=== PATIENT | female | born 1990 | race Caucasian/White ===

== ENCOUNTER 2016-11-02 11:29 | Inpatient (IN) | payer BC, OTHER ==
[~2016-11-02] VITALS: Ht 177.8 cm; Wt 96.7 kg
[~2016-11-02 11:29] MED LIST: HYDR-2951 PO; LISI-360 PO; Z.0.BCPILL PO
[2016-11-02 11:31] VITALS: BP 145/90; PULSE 100; RESP 20; TEMP 98.5; O2SAT 98
[2016-11-02 12:05] VITALS: RESP 17; O2SAT 99
[2016-11-02] MEDS ORDERED: ONDANSETRON HCL 4 MG/2 ML VIAL IVP ONE (13:00)
[2016-11-02] MEDS ORDERED: PANTOPRAZOLE SODIUM 40 MG VIAL IVP ONE (13:00)
[2016-11-02] MEDS ORDERED: MORPHINE SULFATE 4 MG/ML INJ IV PUSH ONE (13:00)
--- NOTE | 2016-11-02 13:06 | PD ---
HPI Chief Complaint: Abdominal Pain Time Seen by Provider: 12:56 Travel History International Travel<30 days: No Contact w/Intl Traveler<30days: No Traveled to known affect area: No History of Present Illness HPI 25-year-old female complains of abdominal pain with nausea vomiting. Patient states the symptoms started 3 days ago. Patient states the pain is sharp stabbing pain localized epigastric and right upper quadrant of the abdomen. Patient states that the pain radiates to the right shoulder. Patient denies any fever chills. Patient states that she has intermittent nausea vomiting with the pain. Patient denies any headache. Patient denies any chest pain or shortness of breath. Patient denies any dysuria or frequency. Patient denies any vaginal discharge or bleeding. PFSH Past Medical History Asthma: Yes Cancer: No Cardiovascular Problems: Yes Genitourinary: No Hypertension: Yes Musculoskeletal: No Neurologic: No Psychiatric: No Reproductive: No ?: Not Past Surgical History Ear Surgery: Yes Oral Surgery: Yes (tonsoloctomy) Tonsillectomy: Yes Social History Alcohol Use: No Tobacco Use: No Substance Use: No Allergies-Medications (Allergen,Severity, Reaction): Coded Allergies: Codeine (Verified Allergy, Mild, 11/02/16) Penicillin (Verified Allergy, Mild, 11/02/16) Reported Meds & Prescriptions Reported Meds & Active Scripts Active Reported Loestrin Fe 1-20 Tablet (Norethindrone-E.estradiol-Iron) 1 Each Tablet 1 Tab PO HS Trazodone (Trazodone HCl) 50 Mg Tab 50 Mg PO HS Celexa (Citalopram Hydrobromide) 10 Mg Tab 10 Mg PO HS Review of Systems General / Constitutional: No: Fever Eyes: No: Visual changes HENT: No: Headaches Cardiovascular: No: Chest Pain or Discomfort Respiratory: No: Shortness of Breath Gastrointestinal: Positive: Nausea, Vomiting, Abdominal Pain Genitourinary: No: Dysuria Musculoskeletal: No: Pain Skin: No Rash Neurologic: No: Weakness Psychiatric: No: Depression Endocrine: No: Polydipsia Hematologic/Lymphatic: No: Easy Bruising Physical Exam Narrative GENERAL: Well-nourished, well-developed patient. SKIN: Focused skin assessment warm/dry. HEAD: Normocephalic. EYES: No scleral icterus. No injection or drainage. NECK: Supple, trachea midline. No JVD or lymphadenopathy. CARDIOVASCULAR: Regular rate and rhythm without murmurs, gallops, or rubs. RESPIRATORY: Breath sounds equal bilaterally. No accessory muscle use. GASTROINTESTINAL: Abdomen soft, nondistended. Patient has moderate tenderness on palpation right upper quadrant of the abdomen. No rebound tenderness. No mass. MUSCULOSKELETAL: No cyanosis, or edema. BACK: Nontender without obvious deformity. No CVA tenderness. Neurologic exam normal. Data Data Last Documented VS Vital Signs Date Time Temp Pulse Resp B/P Pulse Ox O2 Delivery O2 Flow Rate FiO2 11/02/16 12:05 17 99 Room Air 11/02/16 11:31 98.5 100 145/90 Orders Complete Blood Count With Diff (11/02/16 13:00) Comprehensive Metabolic Panel (11/02/16 13:00) Lipase (11/02/16 13:00) Prothrombin Time / Inr (Pt) (11/02/16 13:00) Act Partial Throm Time (Ptt) (11/02/16 13:00) Urinalysis - C+S If Indicated (11/02/16 13:00) Us Abdomen Gallbladder (11/02/16 ) Iv Access Insert/Monitor (11/02/16 13:00) Ecg Monitoring (11/02/16 13:00) Oximetry (11/02/16 13:00) Morphine Inj (Morphine Inj) (11/02/16 13:00) Ondansetron Inj (Zofran Inj) (11/02/16 13:00) Pantoprazole Inj (Protonix Inj) (11/02/16 13:00) Sodium Chlor 0.9% 1000 Ml Inj (Ns 1000 M (11/02/16 13:00) Ed Urine Pregnancytest Poc (11/02/16 13:00) Hydromorphone Pf Inj (Dilaudid Pf Inj) (11/02/16 13:15) Levofloxacin 750 Mg Premix Inj (Levaquin (11/02/16 17:00) Metronidazole 500 Mg Inj (Flagyl 500 Mg (11/02/16 17:00) Labs Laboratory Tests Test 11/02/16 11/02/16 13:05 14:10 White Blood Count 14.8 TH/MM3 Red Blood Count 4.75 MIL/MM3 Hemoglobin 14.1 GM/DL Hematocrit 41.2 % Mean Corpuscular Volume 86.7 FL Mean Corpuscular Hemoglobin 29.7 PG Mean Corpuscular Hemoglobin 34.3 % Concent Red Cell Distribution Width 12.7 % Platelet Count 297 TH/MM3 Mean Platelet Volume 7.6 FL Neutrophils (%) (Auto) 87.2 % Lymphocytes (%) (Auto) 9.1 % Monocytes (%) (Auto) 3.1 % Eosinophils (%) (Auto) 0.2 % Basophils (%) (Auto) 0.4 % Neutrophils # (Auto) 12.9 TH/MM3 Lymphocytes # (Auto) 1.3 TH/MM3 Monocytes # (Auto) 0.5 TH/MM3 Eosinophils # (Auto) 0.0 TH/MM3 Basophils # (Auto) 0.1 TH/MM3 CBC Comment DIFF FINAL Differential Comment Prothrombin Time 9.9 SEC Prothromb Time International 0.9 RATIO Ratio Activated Partial 26.9 SEC Thromboplast Time Sodium Level 135 MEQ/L Potassium Level 3.7 MEQ/L Chloride Level 103 MEQ/L Carbon Dioxide Level 25.6 MEQ/L Anion Gap 6 MEQ/L Blood Urea Nitrogen 7 MG/DL Creatinine 0.64 MG/DL Estimat Glomerular Filtration 114 ML/MIN Rate Random Glucose 100 MG/DL Calcium Level 9.1 MG/DL Total Bilirubin 0.5 MG/DL Aspartate Amino Transf 18 U/L (AST/SGOT) Alanine Aminotransferase 26 U/L (ALT/SGPT) Alkaline Phosphatase 57 U/L Total Protein 7.8 GM/DL Albumin 3.9 GM/DL Lipase 143 U/L Urine Color LIGHT-YELLOW Urine Turbidity CLEAR Urine pH 7.0 Urine Specific [place] 1.002 Urine Protein NEG mg/dL Urine Glucose (UA) NEG mg/dL Urine Ketones NEG mg/dL Urine Occult Blood NEG Urine Nitrite NEG Urine Bilirubin NEG Urine Urobilinogen LESS THAN 2.0 MG/DL Urine Leukocyte Esterase TRACE Urine RBC LESS THAN 1 /hpf Urine WBC 2 /hpf Urine Squamous Epithelial 2 /hpf Cells Urine Bacteria OCC /hpf Microscopic Urinalysis Comment CULT NOT INDICATED MDM Medical Decision Making Medical Screen Exam Complete: Yes Emergency Medical Condition: Yes Interpretation(s) Last Impressions Gall Bladder Ultrasound 11/02/16 0000 Signed Impressions: Service Date/Time: Wednesday, November 02, 2016 14:28 - CONCLUSION: Gallstones, gallbladder wall thickening and pericholecystic fluid suspicious for acute cholecystitis. Adjacent liver and right kidney is unremarkable. Nestor Beltrán MD 1646 PM. CBC WBC 14.8. 87 neutrophil. CMP within normal limit. UA is negative. Differential Diagnosis Differential diagnosis including gastritis, PUD, pancreatitis, cholecystitis, colitis, UTI, pyelonephritis, nephrolithiasis. Narrative Course 35-year-old female with epigastric and right upper quadrant abdominal pain. Normal saline solution 1 25 cc an hour. Dilaudid 0.5 mg IV. Zofran 4 mg IV. Protonix 40 mg IV. Levaquin 750 mg IV. Flagyl 500 mg IV. Diagnosis Primary Impression: Acute cholecystitis Admitting Information Admitting Physician Requests: Admit Brady Cook MD Nov 02, 2016 13:05
[2016-11-02] MEDS ORDERED: HYDROmorphone HCL PF 1 MG/ML VIAL IV PUSH ONE ×2 (13:15→17:15)
[2016-11-02 13:22] LABS: AUTOMATED NEUTROPHIL # 12.9 TH/MM3 (1.8-7.7); BASOPHIL # 0.1 TH/MM3 (0-0.2); BASOPHIL % 0.4 % (0.0-2.0); EOSINOPHIL % 0.2 % (0.0-4.0); HEMATOCRIT 41.2 % (35.0-46.0); HEMO FLAGS DIFF FINAL; LYMPH % 9.1 % (9.0-44.0); LYMPHOCYTE # 1.3 TH/MM3 (1.0-4.8); MEAN CELL VOLUME 86.7 FL (80.0-100.0); MEAN CORPUSCULAR HEMOGLOBIN 29.7 PG (27.0-34.0); MEAN CORPUSCULAR HGB CONC 34.3 % (32.0-36.0); MONO % 3.1 % (0.0-8.0); NEUT % 87.2 % (16.0-70.0); PLATELET COUNT 297 TH/MM3 (150-450); RED BLOOD COUNT 4.75 MIL/MM3 (4.00-5.30); RED CELL DISTRIBUTION WIDTH 12.7 % (11.6-17.2); WHITE BLOOD COUNT 14.8 TH/MM3 (4.0-11.0)
[2016-11-02] MEDS: SODIUM CHLOR 0.9% 1000 ML INJ 1,000 ML IV SCH ×3 (13:24→23:24)
[2016-11-02 13:36] LABS: APTT (PATIENT) 26.9 SEC (24.3-30.1); INTERNATIONAL NORMALIZED RATIO 0.9 RATIO; PROTHROMBIN TIME - PATIENT 9.9 SEC (9.8-11.6)
[2016-11-02 13:47] LABS: ANION GAP 6 MEQ/L (5-15); AST (GOT) 18 U/L (15-37); BICARBONATE 25.6 MEQ/L (21.0-32.0); BLOOD UREA NITROGEN 7 MG/DL (7-18); CHLORIDE 103 MEQ/L (98-107); GLOMERULAR FILTRATION RATE 114 ML/MIN (>89); POTASSIUM 3.7 MEQ/L (3.5-5.1); SODIUM (NA) 135 MEQ/L (136-145)
[2016-11-02 13:50] LABS: ALKALINE PHOSPHATASE 57 U/L (45-117); ALT (GPT) 26 U/L (10-53); TOTAL BILIRUBIN ADULT 0.5 MG/DL (0.2-1.0)
[2016-11-02 14:29] LABS: BACTERIA, URINE OCC /hpf; BLOOD, URINE NEG (NEG); COMMENT (UR) CULT NOT INDICATED; CULTURE IF INDICATED CULT NOT INDICATED; GLUCOSE,URINE NEG (NEG); KETONE, URINE NEG (NEG); NITRITE,URINE NEG (NEG); SQUAMOUS EPITHELIAL CELL URINE 2 /hpf (0-5); URINE COLOR LIGHT-YELLOW (YELLW/STRAW)
--- NOTE | 2016-11-02 15:34 | RADRPT ---
EXAM DATE/TIME: 11/02/2016 14:28 [facility] COMPARISON: No previous studies available for comparison. INDICATIONS : Abdominal pain, nausea and vomiting. MEDICAL HISTORY : Hypertension. SURGICAL HISTORY : Tonsillectomy. ENCOUNTER: Initial ACUITY: 3 days PAIN SCORE: 3/10 LOCATION: Right upper quadrant MEASUREMENTS: LIVER: 16.7 cm length COMMON DUCT: 7 mm RIGHT KIDNEY: 11.4 x 5.5 x 4.9 cm FINDINGS: Ultrasound examination of the right upper quadrant was performed. There are numerous gallstones in t he gallbladder. There is gallbladder wall thickening and some pericholecystic fluid. It is concerni ng for acute cholecystitis. There is no reported pain over the gallbladder. CONCLUSION: Gallstones, gallbladder wall thickening and pericholecystic fluid suspicious for acute cholecystitis. Adjacent liver and right kidney is unremarkable. Nestor Beltrán MD on November 02, 2016 at 15:30 Board Certified Radiologist. This report was verified electronically.
[2016-11-02] MEDS ORDERED: CELE10TA PO (15:49)
[2016-11-02] MEDS ORDERED: TRAZ50TA12 PO (15:49)
[2016-11-02] MEDS ORDERED: NORE1TAB55 PO (15:49)
[2016-11-02] MEDS ORDERED: LEVOFLOXACIN 750 MG PREMIX INJ 150 ML IV ONE (17:00)
[2016-11-02] MEDS ORDERED: metroNIDAZOLE 500 MG INJ 100 ML IV ONE (17:00)
[2016-11-02 17:42] VITALS: BP 130/80; PULSE 73; RESP 18; TEMP 98.9; O2SAT 99
[2016-11-02] MEDS ORDERED: MORPHINE SULFATE 4 MG/ML INJ IV PRN (18:30)
--- NOTE | 2016-11-02 18:45 | MH ---
cc: CARL LOTT M.D. DATE OF ADMISSION 11/02/2016 DATE OF 1990 HISTORY This is a 25-year-old female who presented to the emergency room with complaints of abdominal pain. The patient states the pain started four days prior to presentation. It was located in the epigastrium. She states it started following the meals consisting of taco and this persisted ever since. It goes to her right back and right shoulder. She has had nausea and vomiting associated with it. No change in bowel habits. She is unsure of fevers or chills or urinary symptoms. PAST MEDICAL HISTORY Significant for gastroesophageal reflux disease as well as asthma. PAST SURGICAL HISTORY Significant for appendectomy. ALLERGIES SHE HAS ALLERGIES TO PENICILLIN, CODEINE. MEDICATIONS She is on trazodone and Celexa at home as well as on control pills. SOCIAL HISTORY She does not smoke. FAMILY HISTORY Noncontributory. REVIEW OF SYSTEMS Review of systems significant for above. All other 10-point review negative. PHYSICAL EXAMINATION GENERAL: On exam she is laying in a stretcher in no acute distress. HEENT: Her pupils are equal and reactive. Her trachea is midline. LUNGS: Respirations clear. CARDIOVASCULAR: Regular. GASTROINTESTINAL: Soft, positive tenderness to the right upper quadrant. NEUROLOGICAL: Nonfocal. MUSCULOSKELETAL: No deformities. LABORATORY DATA The patient's white count is 15. Electrolytes within normal limits. IMAGING STUDIES Ultrasound revealed gallbladder with thickened wall with pericholecystic fluid as well as gallstones. ASSESSMENT This is a patient with cholecystitis, cholelithiasis. As symptoms have been present for approximately 4 days now it is felt that management with bowel rest, antibiotics. Will be monitored. Allow the patient's gallbladder to cool down and removed it in 6-8 weeks if she responds to this mode of therapy. If the patient does not respond to this mode of therapy will then proceed with laparoscopic cholecystectomy. This was explained to the patient. The risks and benefits explained, technical aspects explained. The patient verbalized understanding and is in agreement. MD LENORA Salazar/GUS /6:34 PM /6:40 PM
[2016-11-02 20:00] VITALS: BP 138/92; PULSE 81; RESP 16; TEMP 98.3; O2SAT 100
[2016-11-02 20:38] VITALS: PULSE 74
[2016-11-02] MEDS: SODIUM CHLORIDE 0.9% FLUSH 10 ML FLUSH IV FLUSH SCH (20:49)
[2016-11-02] MEDS ORDERED: traZODone HCL 50 MG TAB PO SCH (23:15)
[2016-11-02] MEDS ORDERED: CITALOPRAM HYDROBROMIDE 20 MG TAB PO SCH (23:15)
[2016-11-02] MEDS: MORPHINE SULFATE 4 MG/ML INJ IV PRN (23:21)
[2016-11-02] MEDS: SODIUM CHLORIDE 0.9% FLUSH 10 ML FLUSH IV FLUSH PRN (23:22)
[2016-11-02] MEDS: metroNIDAZOLE 500 MG INJ 100 ML IV SCH (23:23)
[2016-11-03] VITALS (8 sets, daily range): BP systolic 119–137; BP diastolic 67–77; PULSE 67–84; RESP 16–20; TEMP 97.9–98.8; O2SAT 97–100
[2016-11-03] MEDS: SODIUM CHLOR 0.9% 1000 ML INJ 1,000 ML IV SCH ×4 (02:22→21:35)
[2016-11-03] MEDS: MORPHINE SULFATE 4 MG/ML INJ IV PRN (06:27)
[2016-11-03] MEDS: SODIUM CHLORIDE 0.9% FLUSH 10 ML FLUSH IV FLUSH PRN (06:28)
[2016-11-03 06:46] LABS: AUTOMATED NEUTROPHIL # 4.8 TH/MM3 (1.8-7.7); BASOPHIL % 0.4 % (0.0-2.0); EOSINOPHIL # 0.1 TH/MM3 (0-0.4); EOSINOPHIL % 1.5 % (0.0-4.0); HEMATOCRIT 34.6 % (35.0-46.0); HEMO FLAGS DIFF FINAL; LYMPH % 28.1 % (9.0-44.0); LYMPHOCYTE # 2.1 TH/MM3 (1.0-4.8); MEAN CELL VOLUME 85.8 FL (80.0-100.0); MEAN CORPUSCULAR HEMOGLOBIN 30.5 PG (27.0-34.0); MEAN CORPUSCULAR HGB CONC 35.5 % (32.0-36.0); MONO % 7.1 % (0.0-8.0); NEUT % 62.9 % (16.0-70.0); PLATELET COUNT 232 TH/MM3 (150-450); RED BLOOD COUNT 4.03 MIL/MM3 (4.00-5.30); RED CELL DISTRIBUTION WIDTH 12.8 % (11.6-17.2); WHITE BLOOD COUNT 7.6 TH/MM3 (4.0-11.0)
[2016-11-03 07:24] LABS: BICARBONATE 23.1 MEQ/L (21.0-32.0); INDIRECT BILIRUBIN 0.5 MG/DL (0.0-0.8); POTASSIUM 3.3 MEQ/L (3.5-5.1); TOTAL BILIRUBIN ADULT 0.7 MG/DL (0.2-1.0)
[2016-11-03] MEDS: PANTOPRAZOLE SODIUM 40 MG VIAL IV SCH (09:08)
[2016-11-03] MEDS: SODIUM CHLORIDE 0.9% FLUSH 10 ML FLUSH IV FLUSH SCH ×2 (09:09→21:00)
[2016-11-03] MEDS: metroNIDAZOLE 500 MG INJ 100 ML IV SCH ×2 (09:09→16:42)
[2016-11-03] MEDS ORDERED: ACETAMINOPHEN 325 MG TAB PO PRN (12:00)
[2016-11-03] MEDS: POTASSIUM CHLOR 20 MEQ PREMIX 100 ML IV SCH ×2 (12:05→18:54)
--- NOTE | 2016-11-03 13:17 | HHI.PR ---
Subjective Subjective Notes 25yo female with 5 day history of cholecystitis being managed medically. Pt appears to be responding to antibotics and bowel rest. Laying in bed in no acute distress. Denies any nausea or vomiting, mild abdominal pain that is controlled with pain medication Objective Vitals/I&O Vital Signs Date Time Temp Pulse Resp B/P Pulse Ox O2 Delivery O2 Flow Rate FiO2 11/03/16 12:00 98.5 75 16 123/69 97 11/03/16 09:18 Room Air Labs Laboratory Tests Test 11/02/16 11/03/16 14:10 06:14 Urine Color LIGHT-YELLOW Urine Turbidity CLEAR Urine pH 7.0 Urine Specific [place] 1.002 Urine Protein NEG Urine Glucose (UA) NEG Urine Ketones NEG Urine Occult Blood NEG Urine Nitrite NEG Urine Bilirubin NEG Urine Urobilinogen LESS THAN 2.0 Urine Leukocyte Esterase TRACE Urine RBC LESS THAN 1 Urine WBC 2 Urine Squamous Epithelial 2 Cells Urine Bacteria OCC Microscopic Urinalysis Comment CULT NOT INDICATED White Blood Count 7.6 Red Blood Count 4.03 Hemoglobin 12.3 Hematocrit 34.6 Mean Corpuscular Volume 85.8 Mean Corpuscular Hemoglobin 30.5 Mean Corpuscular Hemoglobin 35.5 Concent Red Cell Distribution Width 12.8 Platelet Count 232 Mean Platelet Volume 7.7 Neutrophils (%) (Auto) 62.9 Lymphocytes (%) (Auto) 28.1 Monocytes (%) (Auto) 7.1 Eosinophils (%) (Auto) 1.5 Basophils (%) (Auto) 0.4 Neutrophils # (Auto) 4.8 Lymphocytes # (Auto) 2.1 Monocytes # (Auto) 0.5 Eosinophils # (Auto) 0.1 Basophils # (Auto) 0.0 CBC Comment DIFF FINAL Differential Comment Sodium Level 141 Potassium Level 3.3 Chloride Level 108 Carbon Dioxide Level 23.1 Anion Gap 10 Blood Urea Nitrogen 6 Creatinine 0.64 Estimat Glomerular Filtration 114 Rate Random Glucose 81 Calcium Level 8.1 Total Bilirubin 0.7 Direct Bilirubin 0.2 Indirect Bilirubin 0.5 Aspartate Amino Transf 9 (AST/SGOT) Alanine Aminotransferase 19 (ALT/SGPT) Alkaline Phosphatase 44 Total Protein 6.2 Albumin 2.8 Radiology Last Impressions Gall Bladder Ultrasound 11/02/16 0000 Signed Impressions: Service Date/Time: Wednesday, November 02, 2016 14:28 - CONCLUSION: Gallstones, gallbladder wall thickening and pericholecystic fluid suspicious for acute cholecystitis. Adjacent liver and right kidney is unremarkable. Nestor Beltrán MD Cardiovascular: Regular Lungs: Clear Abdomen: Non-tender Extremities: Perfused A/P Assessment and Plan D/C IV pain meds, control with oral Continue with ABX Start full liquid diet and advanced to soft, low-fat as tolerated Discharge Planning If she does well with PO intake can possibly go home tomorrow and follow up in the office in 10-14 days Vanessa Yeh [facility] Nov 03, 2016 13:17
--- NOTE | 2016-11-03 15:07 | EKG ---
Date Performed: 11/02/2016 Time Performed: 19:12:30 PTAGE: 25 years EKG: Sinus rhythm NONSPECIFIC T-WAVE ABNORMALITY BORDERLINE ECG NO PREVIOUS TRACING DOCTOR: Jaquelin Matson Interpretating Date/Time 11/03/2016 14:59:46
[2016-11-03] MEDS ORDERED: LEVOFLOXACIN 500 MG PREMIX INJ 100 ML IV SCH (17:00)
[2016-11-03] MEDS: HYDROmorphone HCL 2 MG TAB PO PRN (18:58)
[2016-11-03] MEDS ORDERED: CITALOPRAM HYDROBROMIDE 20 MG TAB PO SCH (21:00)
[2016-11-03] MEDS ORDERED: traZODone HCL 50 MG TAB PO SCH (21:00)
[2016-11-04] VITALS: BP 104/57; PULSE 61; RESP 18; TEMP 99; O2SAT 99
[2016-11-04] MEDS: HYDROmorphone HCL 2 MG TAB PO PRN ×4 (00:53→16:56)
[2016-11-04] MEDS: metroNIDAZOLE 500 MG INJ 100 ML IV SCH ×2 (00:54→09:39)
[2016-11-04 04:00] VITALS: BP 123/72; PULSE 64; RESP 20; TEMP 97.9; O2SAT 100
[2016-11-04 07:55] VITALS: PULSE 57
[2016-11-04 08:03] VITALS: BP 143/85; PULSE 67; RESP 18; TEMP 98.1; O2SAT 98
[2016-11-04] MEDS: SODIUM CHLORIDE 0.9% FLUSH 10 ML FLUSH IV FLUSH SCH (09:00)
[2016-11-04] MEDS: PANTOPRAZOLE SODIUM 40 MG VIAL IV SCH (09:40)
[2016-11-04] MEDS: SODIUM CHLOR 0.9% 1000 ML INJ 1,000 ML IV SCH (10:22)
[2016-11-04 12:00] VITALS: BP 120/67; PULSE 60; RESP 17; TEMP 98; O2SAT 97
--- NOTE | 2016-11-04 13:01 | HHI.PR ---
Subjective Subjective Notes 25yo female with 5 day history of cholecystitis being managed medically. Sitting up in bed, in no acute distress. Abdominal pain much improved, no nausea or vomiting. Tolerating soft diet Objective Vitals/I&O Vital Signs Date Time Temp Pulse Resp B/P Pulse Ox O2 Delivery O2 Flow Rate FiO2 11/04/16 08:03 98.1 67 18 143/85 98 11/03/16 21:45 Room Air Radiology Last Impressions Gall Bladder Ultrasound 11/02/16 0000 Signed Impressions: Service Date/Time: Wednesday, November 02, 2016 14:28 - CONCLUSION: Gallstones, gallbladder wall thickening and pericholecystic fluid suspicious for acute cholecystitis. Adjacent liver and right kidney is unremarkable. Nestor Beltrán MD Cardiovascular: Regular Lungs: Clear Abdomen: Non-tender Extremities: Perfused A/P Assessment and Plan Continue with ABX at home Continue with low-fat as tolerated Discharge Planning Most likely D/C home later today Vanessa Yeh Nov 04, 2016 13:00
[2016-11-04] MEDS ORDERED: LEVO750T3 PO (15:35)
[2016-11-04] MEDS ORDERED: METR-1 PO (15:35)
[2016-11-04] MEDS ORDERED: OXYC1TAB63 PO (15:35)
[2016-11-04 16:00] VITALS: BP 123/64; PULSE 61; RESP 17; TEMP 97.9; O2SAT 100
== END 2016-11-04 17:28 | disposition home or self-care (01) | DRG 446 ==
LOC: NEPC 11:29 → NEDH 17:15 → N04A 20:02
PROVIDERS: ADMIT Surgery; ATTEND Surgery
DX: K80.10 Calculus of gallbladder with chronic cholecystitis without obstruction (principal); I10 Essential (primary) hypertension; J45.909 Unspecified asthma, uncomplicated; K21.9 Gastro-esophageal reflux disease without esophagitis
CPT/HCPCS: 76705; 80048; 80053; 80076; 81001; 83690; 84703; 85025; 85610; 85730; 93005; 96374; 96375; 96376; C9113; J1170; J1956; J2270; J2405; J3480; J7030

== ENCOUNTER 2016-11-07 00:40 | Inpatient (IN) | payer OTHER ==
[2016-11-07] VITALS (7 sets, daily range): BP systolic 115–127; BP diastolic 71–86; PULSE 65–91; RESP 14–20; TEMP 97.1–98.8; O2SAT 96–99
[~2016-11-07] VITALS: Ht 170.2 cm; Wt 97.3 kg
[~2016-11-07 00:40] MED LIST changes: +CELE10TA PO; -HYDR-2951 PO; +LEVO750T3 PO; -LISI-360 PO; +METR-1 PO; +NORE1TAB55 PO; +OXYC1TAB63 PO; +TRAZ50TA12 PO; -Z.0.BCPILL PO
--- NOTE | 2016-11-07 01:44 | PD ---
HPI Chief Complaint: Abdominal Pain Time Seen by Provider: 01:24 Travel History International Travel<30 days: No Contact w/Intl Traveler<30days: No Traveled to known affect area: No History of Present Illness HPI 25yo F presents to the ED with c/o RUQ pain that started at 11pm today. Pain is sharp and radiates to right scapula and constant. Associated with nausea. Had some chills. Denies any chest pain, fever, sob, vomiting, dysuria, hematuria, focal weakness or numbness. Pt was just admitted 11/02/[address] was seen [address] Dr[address] Reina for acute cholecystitis. Plan at the time was to medically manage and take the gallbladder out later but if symptoms occur again , then plan was lap cholecystectomy. Pt is on her menstrual period. PFSH Past Medical History Asthma: Yes Anxiety: Yes Depression: Yes Cancer: No Cardiovascular Problems: Yes Endocrine: No Gastrointestinal Disorders: Yes (appendectomy (2012)) GERD: Yes Genitourinary: No Hypertension: Yes Immune Disorder: No Musculoskeletal: No Neurologic: No Psychiatric: Yes Reproductive: No Respiratory: Yes Tetanus Vaccination: > 5 Years ?: Not LMP: currently on it Past Surgical History Abdominal Surgery: Yes (appendectomy (2012)) Ear Surgery: Yes Oral Surgery: Yes (tonsoloctomy) Tonsillectomy: Yes Other Surgery: Yes Social History Alcohol Use: No Tobacco Use: No Substance Use: No Allergies-Medications (Allergen,Severity, Reaction): Coded Allergies: Codeine (Verified Allergy, Mild, 11/02/16) Penicillin (Verified Allergy, Mild, 11/02/16) Reported Meds & Prescriptions Reported Meds & Active Scripts Active Oxycodone-Acetaminophen 5-325 mg Tab 1-2 Tab PO Q4H PRN Reported Loestrin Fe 1-20 Tablet (Norethindrone-E.estradiol-Iron) 1 Each Tablet 1 Tab PO HS Trazodone (Trazodone HCl) 50 Mg Tab 50 Mg PO HS Celexa (Citalopram Hydrobromide) 10 Mg Tab 10 Mg PO HS Review of Systems Except as stated in HPI: all other systems reviewed are Neg Physical Exam Narrative GENERAL: 25yo F in mild distress. SKIN: Focused skin assessment warm/dry. HEAD: Atraumatic. Normocephalic. EYES: Pupils equal and round. No scleral icterus. No injection or drainage. ENT: No nasal bleeding or discharge. Mucous membranes pink and moist. NECK: Trachea midline. No JVD. CARDIOVASCULAR: Regular rate and rhythm. No murmur appreciated. RESPIRATORY: No accessory muscle use. Clear to auscultation. Breath sounds equal bilaterally. GASTROINTESTINAL: Abdomen soft, +RUQ. No rebound tenderness or guarding. BACK: +TTP right scapula. MUSCULOSKELETAL: No obvious deformities. No clubbing. No cyanosis. No edema. NEUROLOGICAL: Awake and alert. No obvious cranial nerve deficits. Motor grossly within normal limits. Normal speech. PSYCHIATRIC: Appropriate mood and affect; insight and judgment normal. Data Data Last Documented VS Vital Signs Date Time Temp Pulse Resp B/P Pulse Ox O2 Delivery O2 Flow Rate FiO2 11/07/16 10:23 88 16 122/78 99 Room Air 11/07/16 07:01 98.8 Orders Basic Metabolic Panel (Bmp) (11/07/16 01:37) Complete Blood Count With Diff (11/07/16 01:37) Lipase (11/07/16 01:37) Prothrombin Time / Inr (Pt) (11/07/16 01:37) Act Partial Throm Time (Ptt) (11/07/16 01:37) Urinalysis - C+S If Indicated (11/07/16 01:37) Us Abdomen Gallbladder (11/07/16 ) Iv Access Insert/Monitor (11/07/16 01:37) Ecg Monitoring (11/07/16 01:37) Oximetry (11/07/16 01:37) Ondansetron Inj (Zofran Inj) (11/07/16 01:45) Sodium Chloride 0.9% Flush (Ns Flush) (11/07/16 01:45) Ed Urine Pregnancytest Poc (11/07/16 01:37) Morphine Inj (Morphine Inj) (11/07/16 01:45) Hepatic Functional Panel (11/07/16 01:47) Consult General Surgery (11/07/16 ) Levofloxacin 500 Mg Premix Inj (Levaquin (11/07/16 06:30) Metronidazole 500 Mg Inj (Flagyl 500 Mg (11/07/16 06:30) NPO (11/07/16 06:25) (Hub Use Only)Inp Phy Cons/Ref (11/07/16 ) Ondansetron Inj (Zofran Inj) (11/07/16 11:00) Admit Order (Ed Use Only) (11/07/16 10:54) Labs Laboratory Tests Test 11/07/16 11/07/16 01:47 03:25 White Blood Count 13.7 TH/MM3 Red Blood Count 4.71 MIL/MM3 Hemoglobin 14.0 GM/DL Hematocrit 40.7 % Mean Corpuscular Volume 86.4 FL Mean Corpuscular Hemoglobin 29.7 PG Mean Corpuscular Hemoglobin 34.4 % Concent Red Cell Distribution Width 12.5 % Platelet Count 278 TH/MM3 Mean Platelet Volume 7.6 FL Neutrophils (%) (Auto) 79.6 % Lymphocytes (%) (Auto) 14.9 % Monocytes (%) (Auto) 4.3 % Eosinophils (%) (Auto) 0.8 % Basophils (%) (Auto) 0.4 % Neutrophils # (Auto) 10.9 TH/MM3 Lymphocytes # (Auto) 2.0 TH/MM3 Monocytes # (Auto) 0.6 TH/MM3 Eosinophils # (Auto) 0.1 TH/MM3 Basophils # (Auto) 0.0 TH/MM3 CBC Comment DIFF FINAL Differential Comment Prothrombin Time 10.4 SEC Prothromb Time International 0.9 RATIO Ratio Activated Partial 28.0 SEC Thromboplast Time Sodium Level 139 MEQ/L Potassium Level 5.1 MEQ/L Chloride Level 103 MEQ/L Carbon Dioxide Level 27.7 MEQ/L Anion Gap 8 MEQ/L Blood Urea Nitrogen 11 MG/DL Creatinine 0.71 MG/DL Estimat Glomerular Filtration 101 ML/MIN Rate Random Glucose 106 MG/DL Calcium Level 9.5 MG/DL Total Bilirubin 0.6 MG/DL Direct Bilirubin 0.1 MG/DL Indirect Bilirubin 0.5 MG/DL Aspartate Amino Transf 108 U/L (AST/SGOT) Alanine Aminotransferase 56 U/L (ALT/SGPT) Alkaline Phosphatase 60 U/L Total Protein 7.8 GM/DL Albumin 3.6 GM/DL Lipase 136 U/L Urine Color YELLOW Urine Turbidity CLEAR Urine pH 6.0 Urine Specific [place] 1.016 Urine Protein NEG mg/dL Urine Glucose (UA) NEG mg/dL Urine Ketones NEG mg/dL Urine Occult Blood TRACE Urine Nitrite NEG Urine Bilirubin NEG Urine Urobilinogen 2.0 MG/DL Urine Leukocyte Esterase NEG Urine RBC 2 /hpf Urine WBC 1 /hpf Urine Squamous Epithelial 1 /hpf Cells Urine Mucus FEW /lpf Microscopic Urinalysis Comment CULT NOT INDICATED MDM Medical Decision Making Medical Screen Exam Complete: Yes Emergency Medical Condition: Yes Differential Diagnosis Acute cholecystitis vs. cholelithiasis Narrative Course 25yo F with recent acute cholecystitis here with RUQ abdominal pain. Labs reviewed, leukocytosis at 13.7. AST/ALT elevated at 108/56. UA showed no leukocyte. US gallbladder showed cholelithiasis with mild wall thickening. No sonographic Rodriguez's sign. Morphine given for pain with improvement. I discussed with general surgeon Dr. Whiteside rn oncology research who is covering Dr. Reina and he states that he will inform Dr. Reina that pt is in the ED and she needs to be evaluated by surgery in the ED for disposition. Diagnosis Primary Impression: Acute cholecystitis Admitting Information Admitting Physician Requests: Leigh Moncada DO Nov 07, 2016 01:44
[2016-11-07] MEDS ORDERED: ONDANSETRON HCL 4 MG/2 ML VIAL IVP ONE (01:45)
[2016-11-07] MEDS ORDERED: SODIUM CHLORIDE 0.9% FLUSH 10 ML FLUSH IV FLUSH PRN ×2 (01:45→13:15)
[2016-11-07] MEDS ORDERED: MORPHINE SULFATE 4 MG/ML INJ IV PUSH ONE (01:45)
[2016-11-07 02:01] LABS: AUTOMATED NEUTROPHIL # 10.9 TH/MM3 (1.8-7.7); BASOPHIL % 0.4 % (0.0-2.0); EOSINOPHIL # 0.1 TH/MM3 (0-0.4); EOSINOPHIL % 0.8 % (0.0-4.0); HEMATOCRIT 40.7 % (35.0-46.0); HEMO FLAGS DIFF FINAL; LYMPH % 14.9 % (9.0-44.0); MEAN CELL VOLUME 86.4 FL (80.0-100.0); MEAN CORPUSCULAR HEMOGLOBIN 29.7 PG (27.0-34.0); MEAN CORPUSCULAR HGB CONC 34.4 % (32.0-36.0); MONO % 4.3 % (0.0-8.0); NEUT % 79.6 % (16.0-70.0); PLATELET COUNT 278 TH/MM3 (150-450); RED BLOOD COUNT 4.71 MIL/MM3 (4.00-5.30); RED CELL DISTRIBUTION WIDTH 12.5 % (11.6-17.2); WHITE BLOOD COUNT 13.7 TH/MM3 (4.0-11.0)
[2016-11-07 02:11] LABS: INTERNATIONAL NORMALIZED RATIO 0.9 RATIO; PROTHROMBIN TIME - PATIENT 10.4 SEC (9.8-11.6)
[2016-11-07 02:31] LABS: BICARBONATE 27.7 MEQ/L (21.0-32.0)
[2016-11-07 02:37] LABS: INDIRECT BILIRUBIN 0.5 MG/DL (0.0-0.8); POTASSIUM 5.1 MEQ/L (3.5-5.1); TOTAL BILIRUBIN ADULT 0.6 MG/DL (0.2-1.0)
--- NOTE | 2016-11-07 03:05 | RADRPT ---
EXAM DATE/TIME: 11/07/2016 02:34 [facility] COMPARISON: CT ABDOMEN & PELVIS W CONTRAST, August 05, 2011, 14:41. US ABDOMEN - GALLBLADDER, November 02, 2016, 14:2 8. INDICATIONS : Right upper quadrant pain. MEDICAL HISTORY : Hypertension. Asthma. GERD. Depression. Anxiety. SURGICAL HISTORY : Tonsillectomy. Appendectomy. ENCOUNTER: Subsequent ACUITY: 4-6 days PAIN SCORE: 10/10 LOCATION: Right upper quadrant MEASUREMENTS: LIVER: 15.3 cm length COMMON DUCT: 5 mm RIGHT KIDNEY: 11.4 x 5.2 x 5.4 cm FINDINGS: LIVER: Normal echotexture without focal lesion or ductal dilatation. COMMON DUCT: No intraluminal mass or stone visualized. GALLBLADDER: There are stones in the gallbladder. The gallbladder is not fully distended but there is mild gallbla dder wall thickening. Sonographic Rodriguez's sign is negative. PANCREAS: Not visualized secondary to bowel gas RIGHT KIDNEY: No evidence of hydronephrosis, stone, or mass. CONCLUSION: 1. Cholelithiasis with mild wall thickening. No sonographic Rodriguez's sign is negative suggesting agai nst acute cholecystitis. 2. Please note that the right pancreas is not adequately visualized. Radames Vaughan MD on November 07, 2016 at 3:00 Board Certified Radiologist. This report was verified electronically.
[2016-11-07 04:59] LABS: BLOOD, URINE TRACE (NEG); COMMENT (UR) CULT NOT INDICATED; CULTURE IF INDICATED CULT NOT INDICATED; GLUCOSE,URINE NEG (NEG); KETONE, URINE NEG (NEG); MUCUS URINE FEW /lpf (OCC); NITRITE,URINE NEG (NEG); SQUAMOUS EPITHELIAL CELL URINE 1 /hpf (0-5); URINE COLOR YELLOW (YELLW/STRAW)
[2016-11-07] MEDS ORDERED: metroNIDAZOLE 500 MG INJ 100 ML IV ONE (06:30)
[2016-11-07] MEDS ORDERED: LEVOFLOXACIN 500 MG PREMIX INJ 100 ML IV ONE (06:30)
[2016-11-07] MEDS ORDERED: PROPOFOL 200 MG/20 ML AMP IV ONE (09:56)
[2016-11-07] MEDS ORDERED: NEOSTIGMINE 3 MG/3 ML SYR IV ONE (09:57)
[2016-11-07] MEDS ORDERED: ONDANSETRON HCL 4 MG/2 ML VIAL IV PUSH ONE ×2 (09:57→11:00)
[2016-11-07] MEDS ORDERED: ACETAMINOPHEN 1000 MG/100 ML VIAL IV ONE (11:56)
[2016-11-07] MEDS ORDERED: DEXAMETHASONE SOD PHOS 4 MG/ML VIAL ONE (11:56)
[2016-11-07] MEDS ORDERED: FAMOTIDINE 20 MG/2 ML VIAL ONE (11:56)
[2016-11-07] MEDS ORDERED: BUPIVACAINE/EPINEPHRINE 0.5% PF 10 ML VIAL INFIL ONE (12:35)
[2016-11-07] MEDS ORDERED: ONDANSETRON HCL 4 MG/2 ML VIAL IV PRN (13:15)
[2016-11-07] MEDS ORDERED: Post-op Orders (for Pharmacy) MISC XX ONE (13:15)
[2016-11-07] MEDS ORDERED: KETOROLAC TROMETHAMINE 30 MG/ML (IVP) VIAL IVP PRN (13:15)
[2016-11-07] MEDS ORDERED: METOCLOPRAMIDE HCL 10 MG/2 ML VIAL IVS PRN (13:15)
[2016-11-07] MEDS ORDERED: HYDROmorphone HCL 2 MG TAB PO PRN (13:15)
[2016-11-07] MEDS ORDERED: MIDAZOLAM HCL 2 MG/2 ML VIAL ONE (13:40)
[2016-11-07] MEDS ORDERED: fentaNYL CITRATE 250 MCG/5 ML AMP ONE (13:40)
[2016-11-07] MEDS: SODIUM CHLOR 0.9% 1000 ML INJ 1,000 ML IV SCH ×2 (13:49→22:38)
[2016-11-07] MEDS ORDERED: *morphine SULFATE 8 MG/ML PERIprocedure ONLY ONE (14:00)
[2016-11-07] MEDS ORDERED: MORPHINE SULFATE 4 MG/ML INJ IV PUSH PRN (14:15)
[2016-11-07] MEDS: metroNIDAZOLE 500 MG INJ 100 ML IV SCH ×2 (14:33→22:38)
[2016-11-07] MEDS ORDERED: PILL SPLITTER OTHER PRN (14:45)
[2016-11-07] MEDS ORDERED: DO NOT ADM ANY ANTICOAGULANT DRUGS PRN (15:00)
[2016-11-07] MEDS: KETOROLAC TROMETHAMINE 30 MG/ML (IVP) VIAL IVP PRN ×2 (15:00→22:39)
--- NOTE | 2016-11-07 19:40 | MH ---
cc: CARL LOTT DATE OF ADMISSION 11/07/2016 DATE OF 11/26/1970 HISTORY OF THE PRESENT ILLNESS This is a 25-year-old female with history of cholecystitis, cholelithiasis who was seen by myself approximately 4 days prior and managed conservatively with antibiotics and diet modification. The patient was doing well until last evening when she experienced severe abdominal pain, nausea and vomiting. As a result she presented to the emergency room. The patient states she had eggs and a shake the day of presentation. PAST MEDICAL HISTORY Significant for: 1. Depression 2. Anxiety. PAST SURGICAL HISTORY Significant for: 1. Appendectomy. 2. Tonsillectomy. MEDICATIONS She is on medications at home that include: 1. Trazodone. 2. Celexa. 3. control. 4. She was recently started on Levaquin and Flagyl on discharge on her last admission. ALLERGIES SHE HAS ALLERGY TO PENICILLIN AND CODEINE. SOCIAL HISTORY She does not smoke or drink alcohol. FAMILY HISTORY Noncontributory. REVIEW OF SYSTEMS Significant for above. All other 10-point review negative. PHYSICAL EXAMINATION HEENT: Reveals the pupils are equal and reactive. Trachea is midline. Sclerae which is anicteric. LUNGS: Respirations clear. CARDIOVASCULAR: Regular. GASTROINTESTINAL: Soft, positive tenderness greatest in the right upper quadrant. MUSCULOSKELETAL: No deformities. NEUROLOGIC: Nonfocal. LABORATORY DATA The patient's white blood cell count is 13.4. Her AST 108, ALT 56. Total bilirubin of 0.6. ASSESSMENT This is a patient with cholecystitis, cholelithiasis. PLAN The plan is to take the patient to the operating room for laparoscopic cholecystectomy. Risks and benefits explained to include but not be exclusive to infection, bleeding, bowel injury, bile duct injury, solid organ injury, hollow organ injury. The technical aspects explained as well as pre and postoperative course. The patient verbalized understanding and consent was obtained. Patient has received antibiotics. We will proceed to OR. MD LENORA Salazar/HARRISON /6:30 PM /7:33 PM
[2016-11-07] MEDS ORDERED: traZODone HCL 50 MG TAB PO SCH (21:00)
[2016-11-07] MEDS: SODIUM CHLORIDE 0.9% FLUSH 10 ML FLUSH IV FLUSH SCH (21:00)
[2016-11-07] MEDS ORDERED: CITALOPRAM HYDROBROMIDE 20 MG TAB PO SCH (21:00)
[2016-11-08] VITALS: BP 112/57; PULSE 70; RESP 20; TEMP 99.4; O2SAT 97
[2016-11-08] MEDS: metroNIDAZOLE 500 MG INJ 100 ML IV SCH ×2 (05:24→14:16)
[2016-11-08 07:43] LABS: BASOPHIL % 0.3 % (0.0-2.0); EOSINOPHIL % 0.5 % (0.0-4.0); HEMO FLAGS DIFF FINAL; LYMPH % 17.2 % (9.0-44.0); LYMPHOCYTE # 1.8 TH/MM3 (1.0-4.8); MEAN CELL VOLUME 87.3 FL (80.0-100.0); MEAN CORPUSCULAR HEMOGLOBIN 30.3 PG (27.0-34.0); MEAN CORPUSCULAR HGB CONC 34.7 % (32.0-36.0); MONO % 5.7 % (0.0-8.0); NEUT % 76.3 % (16.0-70.0); PLATELET COUNT 260 TH/MM3 (150-450); RED BLOOD COUNT 4.24 MIL/MM3 (4.00-5.30); RED CELL DISTRIBUTION WIDTH 12.7 % (11.6-17.2); WHITE BLOOD COUNT 10.5 TH/MM3 (4.0-11.0)
[2016-11-08 08:00] VITALS: BP 121/66; PULSE 75; RESP 20; TEMP 96.9; O2SAT 99
[2016-11-08] MEDS ORDERED: LEVOFLOXACIN 500 MG PREMIX INJ 100 ML IV SCH (08:00)
[2016-11-08 08:19] LABS: BICARBONATE 23.2 MEQ/L (21.0-32.0); INDIRECT BILIRUBIN 0.4 MG/DL (0.0-0.8); POTASSIUM 3.2 MEQ/L (3.5-5.1); TOTAL BILIRUBIN ADULT 0.5 MG/DL (0.2-1.0)
[2016-11-08] MEDS: SODIUM CHLORIDE 0.9% FLUSH 10 ML FLUSH IV FLUSH SCH (08:35)
[2016-11-08] MEDS: SODIUM CHLOR 0.9% 1000 ML INJ 1,000 ML IV SCH (08:37)
--- NOTE | 2016-11-08 11:03 | HHI.PR ---
Subjective Subjective Notes 25yo female who was seen by Dr. Kirkpatrick approximately 5 days ago with cholecystitis and was being managed conservatively. She presented to the ED yesterday with complaints on severe abdominal pain, nausea, and vomiting. She is now POD#1 laparoscopic cholecystectomy. Objective Vitals/I&O Vital Signs Date Time Temp Pulse Resp B/P Pulse Ox O2 Delivery O2 Flow Rate FiO2 11/08/16 08:00 96.9 75 20 121/66 99 11/07/16 15:15 Room Air 11/07/16 14:00 2 Labs Laboratory Tests Test 11/08/16 06:20 White Blood Count 10.5 Red Blood Count 4.24 Hemoglobin 12.8 Hematocrit 37.0 Mean Corpuscular Volume 87.3 Mean Corpuscular Hemoglobin 30.3 Mean Corpuscular Hemoglobin 34.7 Concent Red Cell Distribution Width 12.7 Platelet Count 260 Mean Platelet Volume 7.8 Neutrophils (%) (Auto) 76.3 Lymphocytes (%) (Auto) 17.2 Monocytes (%) (Auto) 5.7 Eosinophils (%) (Auto) 0.5 Basophils (%) (Auto) 0.3 Neutrophils # (Auto) 8.0 Lymphocytes # (Auto) 1.8 Monocytes # (Auto) 0.6 Eosinophils # (Auto) 0.0 Basophils # (Auto) 0.0 CBC Comment DIFF FINAL Differential Comment Sodium Level 140 Potassium Level 3.2 Chloride Level 107 Carbon Dioxide Level 23.2 Anion Gap 10 Blood Urea Nitrogen 8 Creatinine 0.57 Estimat Glomerular Filtration 130 Rate Random Glucose 93 Calcium Level 8.5 Total Bilirubin 0.5 Direct Bilirubin 0.1 Indirect Bilirubin 0.4 Aspartate Amino Transf 48 (AST/SGOT) Alanine Aminotransferase 65 (ALT/SGPT) Alkaline Phosphatase 47 Total Protein 6.3 Albumin 3.1 Cardiovascular: Regular Lungs: Clear Abdomen: Post-op tenderness Extremities: Perfused Wound Wound : Wound Location: Abdomen Appearance: Clean & Dry A/P Assessment and Plan Hypokalemia - replace with 40 MEQ KCL Advance to low fat diet Continue with frequent ambulation The exam, history, and the medical decision-making described in the above note were completed with the assistance of the mid-level provider. I reviewed and agree with the findings presented. I attest that I had a [id number] encounter with the patient on the same day, and personally performed and documented my assessment and findings in the medical record. Discharge Planning D/C home today Vanessa Yeh Nov 08, 2016 11:03 Víctor Kirkpatrick MD Nov 08, 2016 17:14
[2016-11-08] MEDS: POTASSIUM CHLOR 20 MEQ PREMIX 100 ML IV SCH ×2 (11:22→14:16)
[2016-11-08 12:00] VITALS: BP 130/81; PULSE 63; RESP 17; TEMP 97.8; O2SAT 95
[2016-11-08 16:00] VITALS: BP 112/60; PULSE 76; RESP 18; TEMP 96.9; O2SAT 99
--- NOTE | 2016-11-09 13:51 | MP ---
cc: VÍCTOR KIRKPATRICK DATE OF SURGERY 11/07/2016 DATE OF 1990 PREOPERATIVE DIAGNOSIS Cholecystitis with cholelithiasis POSTOPERATIVE DIAGNOSIS Cholecystitis with cholelithiasis PROCEDURE Laparoscopic cholecystectomy SURGEON Víctor Kirkpatrick MD ANESTHESIA General endotracheal anesthesia ESTIMATED BLOOD LOSS Scant FINDINGS Fatty liver, prominent common bile duct SPECIMENS None COMPLICATIONS None OPERATION The patient was brought to the operating room and placed on the operating table in a supine position. A bilateral sequential inflation device was placed on the lower extremities. General anesthesia was instituted, antibiotics initiated. The abdomen was prepped and draped sterilely. A point in the periumbilical region was anesthetized with 0.25% Marcaine with epinephrine. A skin incision was made. A 5 mm Optiview port was placed under direct vision, a pneumoperitoneum created. Under direct vision a 12 mm subxiphoid and two 5 mm right upper quadrant ports were placed. Prior to placement of all ports the skin and peritoneum were anesthetized with 0.25% Marcaine with epinephrine. The patient was placed in reverse Trendelenburg position, right side up. The gallbladder was retracted into the upper abdomen. The infundibulum was retracted. Calot's triangle was opened. The hepatoduodenal ligament was incised. The cystic artery was identified. It was circumferentially dissected with the electrocautery and then divided with the electrocautery. The cystic duct was identified, circumferentially dissected and divided with the electrocautery. The gallbladder was removed from the liver bed using the electrocautery. It was retrieved from the peritoneal cavity in an Endopouch through the 12 mm port site. The operative site was inspected. Hemostasis was present. There was no evidence of bile leak. CO2 was released. All ports were removed. All skin incisions were closed with 4-0 Monocryl. The abdominal wall was cleaned and a sterile dressing placed. The patient was awakened and taken to the recovery room. MD LENORA Salazar/SHANA /6:34 PM /1:43 PM
== END 2016-11-08 16:52 | disposition home or self-care (01) | DRG 419 ==
LOC: NEPC 00:40 → NEDA 10:55 → OBSVTOIN 13:17 → N07A 15:35
PROVIDERS: ADMIT Surgery; ATTEND Surgery
PROC: 0FT44ZZ Resection of Gallbladder, Percutaneous Endoscopic Approach (ICD-10-PCS; principal; 2016-11-07 12:06)
DX: K80.12 Calculus of gallbladder with acute and chronic cholecystitis without obstruction (principal); K76.0 Fatty (change of) liver, not elsewhere classified; I10 Essential (primary) hypertension; E87.6 Hypokalemia; F32.9 Major depressive disorder, single episode, unspecified; F41.9 Anxiety disorder, unspecified; E66.9 Obesity, unspecified; Z68.33 Body mass index [BMI] 33.0-33.9, adult; K21.9 Gastro-esophageal reflux disease without esophagitis
CPT/HCPCS: 76705; 80048; 80076; 81001; 83690; 84703; 85025; 85610; 85730; 88304; 94150; 96374; 96375; J0131; J1100; J1885; J1956; J2250; J2270; J2405; J2710; J3010; J3480; J7030

== ENCOUNTER 2017-05-30 07:23 | Emergency (ER) | payer OTHER ==
[~2017-05-30] VITALS: Ht 175.3 cm; Wt 100.0 kg
[~2017-05-30 07:23] MED LIST changes: -LEVO750T3 PO; -METR-1 PO
[2017-05-30 07:24] VITALS: BP 160/77; PULSE 89; RESP 18; TEMP 98.5; O2SAT 96
[2017-05-30] MEDS ORDERED: SODIUM CHLOR 0.9% 1000 ML INJ 1,000 ML IV SCH (07:48)
[2017-05-30 07:53] VITALS: BP 130/69; PULSE 83; RESP 14; TEMP 98.5; O2SAT 98
[2017-05-30] MEDS ORDERED: TRAZ100T10 PO (07:55)
--- NOTE | 2017-05-30 07:56 | PD ---
HPI Chief Complaint: GI Complaint Time Seen by Provider: 07:38 Travel History International Travel<30 days: No Contact w/Intl Traveler<30days: No Traveled to known affect area: No History of Present Illness HPI The patient is a 26-year-old female who presents to the emergency department for nausea, vomiting, hematemesis, right lower quadrant abdominal pain, and black watery stools. The patient's symptoms started last night, she had an episode of nausea and vomiting followed by hematemesis which she describes his bright red blood. She also complains of several episodes of watery black stool, unsure if there was any blood in her stool. She now complains right lower quadrant abdominal pain. She has a history of previous cholecystectomy and appendectomy. She has been seen by camp coordinator the past, Dr. Galicia, and underwent endoscopy and colonoscopy. She was noted to have internal hemorrhoids and a polyp. She was undergoing workup for possible ulcerative colitis. She denies any fever, chills, or sweats. She does take medications for ulcer disease. PFSH Past Medical History Asthma: Yes Anxiety: Yes Depression: Yes Cancer: No Cardiovascular Problems: Yes Endocrine: No Gastrointestinal Disorders: Yes (appendectomy (2012)) GERD: Yes Genitourinary: No Hypertension: Yes Immune Disorder: No Musculoskeletal: No Neurologic: No Psychiatric: Yes Reproductive: No Respiratory: Yes ?: Not LMP: 05/13/17 Past Surgical History Ear Surgery: Yes Eye Surgery: Yes Oral Surgery: Yes (tonsillectomy) Tonsillectomy: Yes Other Surgery: Yes Social History Alcohol Use: No Tobacco Use: No Substance Use: No Allergies-Medications (Allergen,Severity, Reaction): Coded Allergies: codeine (Unverified Allergy, Mild, 05/30/17) penicillin G (Unverified Allergy, Mild, 05/30/17) Reported Meds & Prescriptions Reported Meds & Active Scripts Active Oxycodone-Acetaminophen 5-325 mg Tab 1-2 Tab PO Q4H PRN Reported Trazodone (Trazodone HCl) 100 Mg Tablet 100 Mg PO HS Loestrin Fe 1-20 Tablet (Norethindrone-E.estradiol-Iron) 1 Each Tablet 1 Tab PO HS Trazodone (Trazodone HCl) 50 Mg Tab 50 Mg PO HS Celexa (Citalopram Hydrobromide) 10 Mg Tab 10 Mg PO HS Review of Systems Except as stated in HPI: all other systems reviewed are Neg General / Constitutional: No: Fever Cardiovascular: No: Chest Pain or Discomfort Respiratory: No: Shortness of Breath Gastrointestinal: Positive: Nausea, Vomiting, Diarrhea, Abdominal Pain, Hematemesis, No: Hematochezia Genitourinary: No: Dysuria Musculoskeletal: No: Myalgias, Arthralgias Physical Exam Narrative GENERAL: Awake, alert, nontoxic-appearing 26-year-old female who appears her stated age and is in no acute respiratory distress. SKIN: Focused skin assessment warm/dry. HEAD: Atraumatic. Normocephalic. EYES: Pupils equal and round. No scleral icterus. No injection or drainage. ENT: No nasal bleeding or discharge. Mucous membranes pink and moist. No visible blood in the posterior oropharynx. No visible blood in the nares. NECK: Trachea midline. No JVD. CARDIOVASCULAR: Regular rate and rhythm. No murmur appreciated. RESPIRATORY: No accessory muscle use. Clear to auscultation. Breath sounds equal bilaterally. GASTROINTESTINAL: Abdomen soft, tender palpation right lower quadrant. No guarding or rigidity. Rectal: The exam was performed in the presence of a female nurse. No gross blood. Guaiac negative. MUSCULOSKELETAL: No obvious deformities. No clubbing. No cyanosis. No edema. NEUROLOGICAL: Awake and alert. No obvious cranial nerve deficits. Motor grossly within normal limits. Normal speech. PSYCHIATRIC: Appropriate mood and affect; insight and judgment normal. Data Data Last Documented VS Vital Signs Date Time Temp Pulse Resp B/P (MAP) Pulse Ox O2 Delivery O2 Flow Rate FiO2 05/30/17 07:55 17 05/30/17 07:53 98.5 83 130/69 (89) 98 Room Air Orders Orders Complete Blood Count With Diff (05/30/17 07:48) Comprehensive Metabolic Panel (05/30/17 07:48) Lipase (05/30/17 07:48) Prothrombin Time / Inr (Pt) (05/30/17 07:48) Act Partial Throm Time (Ptt) (05/30/17 07:48) Urinalysis - C+S If Indicated (05/30/17 07:48) Ct Abd/Pel W Iv Contrast(Rout) (05/30/17 07:48) Iv Access Insert/Monitor (05/30/17 07:48) Ecg Monitoring (05/30/17 07:48) Oximetry (05/30/17 07:48) Morphine Inj (Morphine Inj) (05/30/17 08:00) Ondansetron Inj (Zofran Inj) (05/30/17 08:00) Pantoprazole Inj (Protonix Inj) (05/30/17 08:00) Sodium Chlor 0.9% 1000 Ml Inj (Ns 1000 M (05/30/17 07:48) Sodium Chloride 0.9% Flush (Ns Flush) (05/30/17 08:00) Ed Urine Pregnancytest Poc (05/30/17 07:48) Oral Contrast - Adult (05/30/17 ) Diatrizoate Liq ( [place]astro[place] Liq) (05/30/17 08:24) Iohexol 350 Inj (Omnipaque 350 Inj) (05/30/17 09:29) Morphine Inj (Morphine Inj) (05/30/17 10:15) Ondansetron Inj (Zofran Inj) (05/30/17 10:15) Al-Mag Hy-Si 40-40-4 Mg/Ml Liq (Mag-Al P (05/30/17 10:15) Lidocaine 2% Viscous (Xylocaine 2% Visco (05/30/17 10:15) Labs Laboratory Tests Test 05/30/17 08:15 05/30/17 08:20 White Blood Count 8.2 TH/MM3 Red Blood Count 4.52 MIL/MM3 Hemoglobin 13.7 GM/DL Hematocrit 38.4 % Mean Corpuscular Volume 84.9 FL Mean Corpuscular Hemoglobin 30.4 PG Mean Corpuscular Hemoglobin Concent 35.8 % Red Cell Distribution Width 12.4 % Platelet Count 261 TH/MM3 Mean Platelet Volume 7.4 FL Neutrophils (%) (Auto) 63.5 % Lymphocytes (%) (Auto) 28.0 % Monocytes (%) (Auto) 6.2 % Eosinophils (%) (Auto) 1.5 % Basophils (%) (Auto) 0.8 % Neutrophils # (Auto) 5.2 TH/MM3 Lymphocytes # (Auto) 2.3 TH/MM3 Monocytes # (Auto) 0.5 TH/MM3 Eosinophils # (Auto) 0.1 TH/MM3 Basophils # (Auto) 0.1 TH/MM3 CBC Comment DIFF FINAL Differential Comment Prothrombin Time 9.8 SEC Prothromb Time International Ratio 1.0 RATIO Activated Partial Thromboplast Time 25.7 SEC Blood Urea Nitrogen 9 MG/DL Creatinine 0.66 MG/DL Random Glucose 97 MG/DL Total Protein 7.3 GM/DL Albumin 3.6 GM/DL Calcium Level 8.7 MG/DL Alkaline Phosphatase 48 U/L Aspartate Amino Transf (AST/SGOT) 20 U/L Alanine Aminotransferase (ALT/SGPT) 21 U/L Total Bilirubin 0.5 MG/DL Sodium Level 139 MEQ/L Potassium Level 3.6 MEQ/L Chloride Level 108 MEQ/L Carbon Dioxide Level 24.1 MEQ/L Anion Gap 7 MEQ/L Estimat Glomerular Filtration Rate 109 ML/MIN Lipase 126 U/L Urine Color YELLOW Urine Turbidity HAZY Urine pH 7.0 Urine Specific [place] 1.020 Urine Protein TRACE mg/dL Urine Glucose (UA) NEG mg/dL Urine Ketones NEG mg/dL Urine Occult Blood NEG Urine Nitrite NEG Urine Bilirubin NEG Urine Urobilinogen 2.0 MG/DL Urine Leukocyte Esterase SMALL Urine RBC 5 /hpf Urine WBC 3 /hpf Urine Squamous Epithelial Cells 10 /hpf Urine Mucus FEW /lpf Microscopic Urinalysis Comment CULT NOT INDICATED MDM Medical Decision Making Medical Screen Exam Complete: Yes Emergency Medical Condition: Yes Medical Record Reviewed: Yes Interpretation(s) Laboratory Tests Test 05/30/17 08:15 05/30/17 08:20 White Blood Count 8.2 TH/MM3 Red Blood Count 4.52 MIL/MM3 Hemoglobin 13.7 GM/DL Hematocrit 38.4 % Mean Corpuscular Volume 84.9 FL Mean Corpuscular Hemoglobin 30.4 PG Mean Corpuscular Hemoglobin Concent 35.8 % Red Cell Distribution Width 12.4 % Platelet Count 261 TH/MM3 Mean Platelet Volume 7.4 FL Neutrophils (%) (Auto) 63.5 % Lymphocytes (%) (Auto) 28.0 % Monocytes (%) (Auto) 6.2 % Eosinophils (%) (Auto) 1.5 % Basophils (%) (Auto) 0.8 % Neutrophils # (Auto) 5.2 TH/MM3 Lymphocytes # (Auto) 2.3 TH/MM3 Monocytes # (Auto) 0.5 TH/MM3 Eosinophils # (Auto) 0.1 TH/MM3 Basophils # (Auto) 0.1 TH/MM3 CBC Comment DIFF FINAL Differential Comment Prothrombin Time 9.8 SEC Prothromb Time International Ratio 1.0 RATIO Activated Partial Thromboplast Time 25.7 SEC Blood Urea Nitrogen 9 MG/DL Creatinine 0.66 MG/DL Random Glucose 97 MG/DL Total Protein 7.3 GM/DL Albumin 3.6 GM/DL Calcium Level 8.7 MG/DL Alkaline Phosphatase 48 U/L Aspartate Amino Transf (AST/SGOT) 20 U/L Alanine Aminotransferase (ALT/SGPT) 21 U/L Total Bilirubin 0.5 MG/DL Sodium Level 139 MEQ/L Potassium Level 3.6 MEQ/L Chloride Level 108 MEQ/L Carbon Dioxide Level 24.1 MEQ/L Anion Gap 7 MEQ/L Estimat Glomerular Filtration Rate 109 ML/MIN Lipase 126 U/L Urine Color YELLOW Urine Turbidity HAZY Urine pH 7.0 Urine Specific [place] 1.020 Urine Protein TRACE mg/dL Urine Glucose (UA) NEG mg/dL Urine Ketones NEG mg/dL Urine Occult Blood NEG Urine Nitrite NEG Urine Bilirubin NEG Urine Urobilinogen 2.0 MG/DL Urine Leukocyte Esterase SMALL Urine RBC 5 /hpf Urine WBC 3 /hpf Urine Squamous Epithelial Cells 10 /hpf Urine Mucus FEW /lpf Microscopic Urinalysis Comment CULT NOT INDICATED Last Impressions Abdomen/Pelvis CT 05/30/17 0748 Signed Impressions: Service Date/Time: Tuesday, May 30, 2017 09:27 - CONCLUSION: 1. 2.9 cm adnexal cyst within the cul-de-sac likely ovarian in nature. No free fluid. 2. Prior cholecystectomy. 3. On the very first image of the exam is a nodule within the lingula. This measures 6 mm in size. Consideration could be made to a followup CT scan of the thorax in 6-12 months to document stability. Cezar Olivera Jr., MD Differential Diagnosis Differential diagnosis includes gastroenteritis, peptic ulcer disease, pancreatitis, ulcerative colitis, Crohn's disease, coagulopathy, AV malformation , viral syndrome, dehydration. Narrative Course IV was established, labs are drawn and sent, and the patient was placed on cardiac telemetry monitoring and continuous pulse oximetry monitoring. The patient was administered morphine, Zofran, Protonix, and IV fluids. CT of the abdomen and pelvis with oral and IV contrast was ordered. Labs are unremarkable. White count is normal, no evidence of anemia. No azotemia on lab work. Lipase is unremarkable. UA reveals 5 RBCs, otherwise unremarkable. Bedside UA test was negative. CT reveals assist the right adnexa, likely ovarian cyst. Patient's hemoglobin is unremarkable, no evidence of continuing hematemesis. The patient was reevaluated, still had mild GERD symptoms with burning in the epigastrium, was administered another dose of pain medications, Zofran, and a GI cocktail. The patient will be provided a copy of her CT results and lab results at discharge. She is advised to follow-up with her primary physician and camp coordinator. She is advised to return if symptoms worsen or progress. Diagnosis Primary Impression: Ovarian cyst Qualified Codes: N83.201 - Unspecified ovarian cyst, right side Additional Impressions: Nausea vomiting and diarrhea Hematemesis Qualified Codes: K92.0 - Hematemesis Patient Instructions: General Instructions Additional Instructions: Please provide a patient a copy of her CT results and lab results at discharge. Medications as directed. Continue the Protonix as previously advised. Follow -up with her primary physician and camp coordinator. Work excuse for 2 days. Return if symptoms worsen or progress. Med/Other Pt SpecificInfo: Prescription(s) given Scripts Hydrocodone-Acetaminophen ([place]) 5 Mg-325 Mg Tab 1 TAB PO Q6H Y for PAIN, #12 TAB 0 Refills Prov: J Luis Girard MD 05/30/17 Ondansetron Odt (Zofran Odt) 4 Mg Tab 4 MG SL Q6HR Y for Nausea/Vomiting, #10 TAB 0 Refills Prov: J Luis Girard MD 05/30/17 Disposition: DISCHARGE HOME Condition: Stable J Luis Girard MD May 30, 2017 07:56
[2017-05-30] MEDS ORDERED: SODIUM CHLORIDE 0.9% FLUSH 10 ML FLUSH IV FLUSH PRN (08:00)
[2017-05-30] MEDS ORDERED: PANTOPRAZOLE SODIUM 40 MG VIAL IVP ONE (08:00)
[2017-05-30] MEDS ORDERED: ONDANSETRON HCL 4 MG/2 ML VIAL IVP ONE ×2 (08:00→10:15)
[2017-05-30] MEDS ORDERED: MORPHINE SULFATE 4 MG/ML INJ IV PUSH ONE ×2 (08:00→10:15)
[2017-05-30] MEDS ORDERED: DIATRIZOATE MEGLUM/DIATRIZOATE SOD 9 ML CUP ONE (08:24)
[2017-05-30 08:40] LABS: AUTOMATED NEUTROPHIL # 5.2 TH/MM3 (1.8-7.7); BASOPHIL # 0.1 TH/MM3 (0-0.2); BASOPHIL % 0.8 % (0.0-2.0); EOSINOPHIL # 0.1 TH/MM3 (0-0.4); EOSINOPHIL % 1.5 % (0.0-4.0); HEMATOCRIT 38.4 % (35.0-46.0); HEMOGLOBIN 13.7 GM/DL (11.6-15.3); LYMPHOCYTE # 2.3 TH/MM3 (1.0-4.8); MEAN CELL VOLUME 84.9 FL (80.0-100.0); MEAN CORPUSCULAR HEMOGLOBIN 30.4 PG (27.0-34.0); MEAN CORPUSCULAR HGB CONC 35.8 % (32.0-36.0); MEAN PLATELET VOLUME 7.4 FL (7.0-11.0); MONO % 6.2 % (0.0-8.0); MONOCYTE # 0.5 TH/MM3 (0-0.9); NEUT % 63.5 % (16.0-70.0); PLATELET COUNT 261 TH/MM3 (150-450); RED BLOOD COUNT 4.52 MIL/MM3 (4.00-5.30); RED CELL DISTRIBUTION WIDTH 12.4 % (11.6-17.2); WHITE BLOOD COUNT 8.2 TH/MM3 (4.0-11.0)
[2017-05-30 08:43] LABS: BILIRUBIN, URINE NEG (NEG); BLOOD, URINE NEG (NEG); GLUCOSE,URINE NEG (NEG); KETONE, URINE NEG (NEG); MUCUS URINE FEW /lpf (OCC); NITRITE,URINE NEG (NEG); SQUAMOUS EPITHELIAL CELL URINE 10 /hpf (0-5); URINE COLOR YELLOW (YELLW/STRAW); URINE LEUKOCYTE ESTERASE SMALL (NEG)
[2017-05-30 08:45] LABS: PROTHROMBIN TIME - PATIENT 9.8 SEC (9.8-11.6)
[2017-05-30 09:13] LABS: ALBUMIN 3.6 GM/DL (3.4-5.0); ALKALINE PHOSPHATASE 48 U/L (45-117); ALT (GPT) 21 U/L (10-53); AST (GOT) 20 U/L (15-37); BICARBONATE 24.1 MEQ/L (21.0-32.0); BLOOD UREA NITROGEN 9 MG/DL (7-18); CALCIUM 8.7 MG/DL (8.5-10.1); CHLORIDE 108 MEQ/L (98-107); CREATININE 0.66 MG/DL (0.50-1.00); GLOMERULAR FILTRATION RATE 109 ML/MIN (>89); GLUCOSE,RANDOM 97 MG/DL (74-106); SODIUM (NA) 139 MEQ/L (136-145); TOTAL BILIRUBIN ADULT 0.5 MG/DL (0.2-1.0); TOTAL PROTEIN 7.3 GM/DL (6.4-8.2)
[2017-05-30] MEDS ORDERED: IOHEXOL 350 MG/ML 10 ML VIAL (for RAD DIAG) IVCONTRAST ONE (09:29)
--- NOTE | 2017-05-30 09:59 | RADRPT ---
EXAM DATE/TIME: 05/30/2017 09:27 [facility] COMPARISON: No previous studies available for comparison. INDICATIONS : Right lower quadrant pain, nausea, hematemesis and black watery stools. IV CONTRAST: 75 cc Omnipaque 350 (iohexol) IV ORAL CONTRAST: Prescribed oral contrast ingested. RADIATION DOSE: 9.99 CTDIvol (mGy) MEDICAL HISTORY : Cardiovascular disease. Hypertension. Asthma. SURGICAL HISTORY : Cholecystectomy. Appendectomy. ENCOUNTER: Initial ACUITY: 1 day PAIN SCALE: 7/10 LOCATION: Right lower quadrant TECHNIQUE: Volumetric scanning of the abdomen and pelvis was performed. Using automated exposure control and ad justment of the mA and/or kV according to patient size, radiation dose was kept as low as reasonably achievable to obtain optimal diagnostic quality images. DICOM format image data is available electro nically for review and comparison. FINDINGS: LOWER LUNGS: On the very first image of the exam is a nodule within the lingula. This is only partially visualized . The portion that is visualized measures 6 mm. LIVER: Homogeneous density without lesion. There is no dilation of the biliary tree. Gallbladder surgically absent. Common bile duct measures 10 mm. SPLEEN: Normal size without lesion. PANCREAS: Within normal limits. KIDNEYS: Normal in size and shape. There is no mass, stone or hydronephrosis. ADRENAL GLANDS: Within normal limits. VASCULAR: There is no aortic aneurysm. BOWEL/MESENTERY: The stomach, small bowel, and colon demonstrate no acute abnormality. There is no free intraperitone al air or fluid. ABDOMINAL WALL: Within normal limits. RETROPERITONEUM: There is no lymphadenopathy. BLADDER: No wall thickening or mass. REPRODUCTIVE: A 2.9 cm cyst is seen within the cul-de-sac. Hounsfield units are 13. Uterus is just the right of mid line and unremarkable. No free fluid. INGUINAL: There is no lymphadenopathy or hernia. MUSCULOSKELETAL: Within normal limits for patient age. CONCLUSION: 1. 2.9 cm adnexal cyst within the cul-de-sac likely ovarian in nature. No free fluid. 2. Prior cholecystectomy. 3. On the very first image of the exam is a nodule within the lingula. This measures 6 mm in size. Co nsideration could be made to a followup CT scan of the thorax in 6-12 months to document stability. Cezar Olivera Jr., MD on May 30, 2017 at 9:53 Board Certified Radiologist. This report was verified electronically.
[2017-05-30] MEDS ORDERED: ALUMINUM/MAGNESIUM/SIMETH 30 ML CUP PO ONE (10:15)
[2017-05-30] MEDS ORDERED: LIDOCAINE VISCOUS 2% SOLN 15 ML UDC PO ONE (10:15)
[2017-05-30] MEDS ORDERED: NORC5TAB PO (10:17)
[2017-05-30] MEDS ORDERED: ZOFR4TAB3 SL (10:17)
[2017-05-30 10:48] VITALS: BP 131/78; PULSE 79; RESP 18; O2SAT 97
[2017-05-30 11:07] VITALS: BP 131/78
== END 2017-05-30 11:07 | disposition home or self-care (01) ==
LOC: NEPE 07:23
DX: N83.201 Unspecified ovarian cyst, right side (principal); K92.0 Hematemesis; R11.2 Nausea with vomiting, unspecified; R19.7 Diarrhea, unspecified; J45.909 Unspecified asthma, uncomplicated; F32.9 Major depressive disorder, single episode, unspecified; I10 Essential (primary) hypertension; Z88.5 Allergy status to narcotic agent; Z88.0 Allergy status to penicillin
CPT/HCPCS: 74177; 80053; 81001; 83690; 84703; 85025; 85610; 85730; 96361; 96374; 96375; 96376; 99285; C9113; J2270; J2405; J7030; Q9963; Q9967

== ENCOUNTER 2017-06-04 21:32 | Observation (INO) | payer OTHER ==
[~2017-06-04] VITALS: Ht 172.7 cm; Wt 106.3 kg
[~2017-06-04 21:32] MED LIST changes: +NORC5TAB PO; +TRAZ100T10 PO; +ZOFR4TAB3 SL
[2017-06-04 21:37] VITALS: BP 142/91; PULSE 84; RESP 18; TEMP 98.9; O2SAT 98
--- NOTE | 2017-06-04 22:18 | PD ---
HPI Chief Complaint: Abdominal Pain Time Seen by Provider: 22:13 Travel History International Travel<30 days: No Contact w/Intl Traveler<30days: No Traveled to known affect area: No History of Present Illness HPI 26-year-old female came to the emergency room with history of abdominal pain, nausea, vomiting and diarrhea that has been going on for past 5-6 days. Patient had originally gone to the emergency room in the main hospital with the symptoms and was seen by the ER physician there. There was blood test and CAT scan done. Patient was discharged home on pain medication prescription. The patient says after the symptoms continued she went to see her primary care doctor who put her on dicyclomine and another medication. She says her symptoms still continue and hence she is here today. Vital signs are stable. Patient has already had cholecystectomy and appendectomy in the past. Her mother is here with her. The abdominal pain is generalized. No aggravating or relieving factors identified from my understanding. No radiation of the pain. The CAT scan that was done couple days ago showed an ovarian cyst. PFSH Past Medical History Narrative Medical List of her past medical, surgical, social and family history is reviewed from the nursing note. Asthma: Yes Anxiety: Yes Depression: Yes Cancer: No Cardiovascular Problems: Yes Diminished Hearing: No Endocrine: No Gastrointestinal Disorders: Yes (appendectomy (2012)) GERD: Yes Genitourinary: No Hypertension: Yes Immune Disorder: No Musculoskeletal: No Neurologic: No Psychiatric: Yes Reproductive: No Respiratory: Yes Influenza Vaccination: Yes ?: Not LMP: 18 Past Surgical History Appendectomy: Yes Ear Surgery: Yes Eye Surgery: Yes Oral Surgery: Yes (tonsillectomy) Tonsillectomy: Yes Other Surgery: Yes Social History Alcohol Use: No Tobacco Use: No Substance Use: No Allergies-Medications (Allergen,Severity, Reaction): Coded Allergies: codeine (Verified Allergy, Mild, 06/04/17) penicillin G (Verified Allergy, Mild, 06/04/17) Comments List of her allergies reviewed from the nursing note. Reported Meds & Prescriptions Reported Meds & Active Scripts Active [place] (Hydrocodone-Acetaminophen) 5 Mg-325 Mg Tab 1 Tab PO Q6H PRN Zofran Odt (Ondansetron Odt) 4 Mg Tab 4 Mg SL Q6HR PRN Reported Trazodone (Trazodone HCl) 100 Mg Tablet 100 Mg PO HS Loestrin Fe 1-20 Tablet (Norethindrone-E.estradiol-Iron) 1 Each Tablet 1 Tab PO HS Celexa (Citalopram Hydrobromide) 10 Mg Tab 10 Mg PO HS Narrative Medication List of her home medications reviewed from the nurse's note Review of Systems Except as stated in HPI: all other systems reviewed are Neg Gastrointestinal: Positive: Nausea, Vomiting, Diarrhea, Abdominal Pain Physical Exam Narrative GENERAL: Awake, alert, obese, mild distress SKIN: Focused skin assessment warm/dry. HEAD: Atraumatic. Normocephalic. EYES: Pupils equal and round. No scleral icterus. No injection or drainage. ENT: No nasal bleeding or discharge. Mucous membranes pink and moist. NECK: Trachea midline. No JVD. CARDIOVASCULAR: Regular rate and rhythm. No murmur appreciated. RESPIRATORY: No accessory muscle use. Clear to auscultation. Breath sounds equal bilaterally. GASTROINTESTINAL: Abdomen soft, non-tender, nondistended. Hepatic and splenic margins not palpable. MUSCULOSKELETAL: No obvious deformities. No clubbing. No cyanosis. No edema. NEUROLOGICAL: Awake and alert. No obvious cranial nerve deficits. Motor grossly within normal limits. Normal speech. PSYCHIATRIC: Appropriate mood and affect; insight and judgment normal. Data Data Last Documented VS Orders Orders Complete Blood Count With Diff (06/04/17 22:19) Comprehensive Metabolic Panel (06/04/17 22:19) Urinalysis - C+S If Indicated (06/04/17 22:19) Iv Access Insert/Monitor (06/04/17 22:19) Ecg Monitoring (06/04/17 22:19) Oximetry (06/04/17 22:19) Sodium Chloride 0.9% Flush (Ns Flush) (06/04/17 22:30) Ed Urine Pregnancytest Poc (06/04/17 22:19) Sodium Chlor 0.9% 1000 Ml Inj (Ns 1000 M (06/04/17 22:45) Ondansetron Inj (Zofran Inj) (06/04/17 22:45) Lipase (06/04/17 22:19) Ondansetron Inj (Zofran Inj) (06/04/17 23:45) Prochlorperazine Inj (Compazine Inj) (06/05/17 01:00) Pantoprazole Inj (Protonix Inj) (06/05/17 01:00) Sodium Chlor 0.9% 1000 Ml Inj (Ns 1000 M (06/05/17 00:55) Sodium Chloride 0.9% Flush (Ns Flush) (06/05/17 01:00) Famotidine Inj (Pepcid Inj) (06/05/17 01:00) Lorazepam Inj (Ativan Inj) (06/05/17 01:15) Beta Hcg (Quant/Titer) (06/04/17 22:45) Admit Order (Ed Use Only) (06/05/17 01:04) Labs Laboratory Tests Test 06/04/17 22:25 06/04/17 22:45 Urine Color YELLOW Urine Turbidity SLIGHT Urine pH 6.0 Urine Specific [place] 1.010 Urine Protein NEG mg/dL Urine Glucose (UA) NEG mg/dL Urine Ketones NEG mg/dL Urine Occult Blood NEG Urine Nitrite NEG Urine Bilirubin NEG Urine Leukocyte Esterase SMALL Urine RBC 0-3 /hpf Urine WBC 3-5 /hpf Urine Squamous Epithelial Cells 0-5 /hpf Urine Amorphous Sediment FEW Urine Bacteria OCC /hpf Urine Mucus OCC /lpf Microscopic Urinalysis Comment CULT NOT INDICATED White Blood Count 8.8 TH/MM3 Red Blood Count 4.69 MIL/MM3 Hemoglobin 13.8 GM/DL Hematocrit 40.1 % Mean Corpuscular Volume 85.6 FL Mean Corpuscular Hemoglobin 29.4 PG Mean Corpuscular Hemoglobin Concent 34.3 % Red Cell Distribution Width 11.7 % Platelet Count 264 TH/MM3 Mean Platelet Volume 7.5 FL Neutrophils (%) (Auto) 62.7 % Lymphocytes (%) (Auto) 27.0 % Monocytes (%) (Auto) 6.4 % Eosinophils (%) (Auto) 2.5 % Basophils (%) (Auto) 1.4 % Neutrophils # (Auto) 5.5 TH/MM3 Lymphocytes # (Auto) 2.4 TH/MM3 Monocytes # (Auto) 0.6 TH/MM3 Eosinophils # (Auto) 0.2 TH/MM3 Basophils # (Auto) 0.1 TH/MM3 CBC Comment DIFF FINAL Differential Comment Blood Urea Nitrogen 7 MG/DL Creatinine 0.70 MG/DL Random Glucose 93 MG/DL Total Protein 7.2 GM/DL Albumin 3.4 GM/DL Calcium Level 8.7 MG/DL Alkaline Phosphatase 50 U/L Aspartate Amino Transf (AST/SGOT) 26 U/L Alanine Aminotransferase (ALT/SGPT) 26 U/L Total Bilirubin 0.3 MG/DL Sodium Level 139 MEQ/L Potassium Level 4.0 MEQ/L Chloride Level 108 MEQ/L Carbon Dioxide Level 23.3 MEQ/L Anion Gap 8 MEQ/L Estimat Glomerular Filtration Rate 102 ML/MIN Lipase 199 U/L Human Chorionic Gonadotropin, Quant LESS THAN 1 MIU/ML MDM Medical Decision Making Medical Screen Exam Complete: Yes Emergency Medical Condition: Yes Medical Record Reviewed: Yes Differential Diagnosis Acute gastroenteritis, dehydration, electrolyte abnormality Narrative Course 10:33 PM patient says that she has protonic said home that she has been taking but it doesn't help. She also has a director engineering Dr. Galicia who has done endoscopy and colonoscopy on her last January and everything was normal. She has not seen him for this episode. Awaiting for blood test result. Patient will be getting a liter fluid bolus and IV Zofran. I have discussed with her that if all her blood test results come back looking within normal limits then I'll discharge her and she needs to follow up with her GI specialist. I will not repeat another CAT scan given her young age and one done less than one week ago. 10:56 PM awaiting for the blood test result. Case was signed over to the oncoming ER physician. Procedures EKG Prior to Arrival: No Scripts Sucralfate Liq (Sucralfate Liq) 1 Gram/10 Ml Megan 1 GM PO ACHS for gerd, #600 ML Prov: Sundar Mesa MD PhD 06/06/17 Prochlorperazine Maleate (Prochlorperazine Maleate) 5 Mg Tab 10 MG PO Q6H Y for N/V, #30 TAB Prov: Sundar Mesa MD PhD 06/06/17 Pantoprazole (Pantoprazole) 40 Mg Tab 40 MG PO BID for gerd, #60 TAB Prov: Sundar Mesa MD PhD 06/06/17 Bethanechol (Urecholine) 10 Mg Tab 10 MG PO Q8HR for Constipation, #90 TAB Prov: Sundar Mesa MD PhD 06/06/17 Promethazine Supp (Promethegan Supp) 25 Mg Supp 25 MG RECTAL Q6H Y for breakthrough n/v, #14 SUPP Prov: Sundar Mesa MD PhD 06/06/17 Tenzin Gonzales MD Jun 04, 2017 22:18
[2017-06-04] MEDS ORDERED: NAPR250T4 PO (22:23)
[2017-06-04] MEDS ORDERED: PANT20TA2 PO (22:23)
[2017-06-04] MEDS ORDERED: ONDANSETRON HCL 4 MG/2 ML VIAL IV PUSH ONE (22:45)
[2017-06-04] MEDS ORDERED: SODIUM CHLOR 0.9% 1000 ML INJ 1,000 ML IV ONE (22:45)
[2017-06-04 22:54] LABS: BILIRUBIN, URINE NEG (NEG); BLOOD, URINE NEG (NEG); GLUCOSE,URINE NEG (NEG); KETONE, URINE NEG (NEG); NITRITE,URINE NEG (NEG); URINE LEUKOCYTE ESTERASE SMALL (NEG)
[2017-06-04 22:56] VITALS: O2SAT 98
[2017-06-04 22:58] LABS: AUTOMATED NEUTROPHIL # 5.5 TH/MM3 (1.8-7.7); BASOPHIL # 0.1 TH/MM3 (0-0.2); BASOPHIL % 1.4 % (0.0-2.0); EOSINOPHIL # 0.2 TH/MM3 (0-0.4); EOSINOPHIL % 2.5 % (0.0-4.0); HEMATOCRIT 40.1 % (35.0-46.0); HEMOGLOBIN 13.8 GM/DL (11.6-15.3); LYMPHOCYTE # 2.4 TH/MM3 (1.0-4.8); MEAN CELL VOLUME 85.6 FL (80.0-100.0); MEAN CORPUSCULAR HEMOGLOBIN 29.4 PG (27.0-34.0); MEAN CORPUSCULAR HGB CONC 34.3 % (32.0-36.0); MEAN PLATELET VOLUME 7.5 FL (7.0-11.0); MONO % 6.4 % (0.0-8.0); MONOCYTE # 0.6 TH/MM3 (0-0.9); NEUT % 62.7 % (16.0-70.0); PLATELET COUNT 264 TH/MM3 (150-450); RED BLOOD COUNT 4.69 MIL/MM3 (4.00-5.30); RED CELL DISTRIBUTION WIDTH 11.7 % (11.6-17.2); WHITE BLOOD COUNT 8.8 TH/MM3 (4.0-11.0)
[2017-06-04] MEDS ORDERED: ACETAMINOPHEN 325 MG TAB PO ONE (23:00)
[2017-06-04 23:12] LABS: URINE COLOR YELLOW (YELLW/STRAW)
[2017-06-04 23:13] LABS: SQUAMOUS EPITHELIAL CELL URINE 0-5 /hpf (0-5)
[2017-06-04 23:14] LABS: AMORPHOUS SEDIMENT, URINE FEW; MUCUS URINE OCC /lpf (OCC); RBC, URINE 0-3 /hpf (0-3)
[2017-06-04 23:15] LABS: BACTERIA, URINE OCC /hpf
[2017-06-04 23:34] LABS: CHLORIDE 108 MEQ/L (98-107); SODIUM (NA) 139 MEQ/L (136-145)
[2017-06-04 23:38] LABS: CALCIUM 8.7 MG/DL (8.5-10.1)
[2017-06-04 23:39] LABS: ALBUMIN 3.4 GM/DL (3.4-5.0); BICARBONATE 23.3 MEQ/L (21.0-32.0); BLOOD UREA NITROGEN 7 MG/DL (7-18); GLUCOSE,RANDOM 93 MG/DL (74-106)
[2017-06-04 23:41] LABS: ALT (GPT) 26 U/L (10-53); AST (GOT) 26 U/L (15-37)
[2017-06-04 23:42] LABS: GLOMERULAR FILTRATION RATE 102 ML/MIN (>89)
[2017-06-04 23:43] LABS: TOTAL BILIRUBIN ADULT 0.3 MG/DL (0.2-1.0); TOTAL PROTEIN 7.2 GM/DL (6.4-8.2)
[2017-06-04 23:44] VITALS: BP 131/67; PULSE 60; RESP 16; O2SAT 99
[2017-06-04 23:44] LABS: ALKALINE PHOSPHATASE 50 U/L (45-117)
[2017-06-04] MEDS ORDERED: ONDANSETRON HCL 4 MG/2 ML VIAL IV ONE (23:45)
[2017-06-05] MEDS ORDERED: SODIUM CHLOR 0.9% 1000 ML INJ 1,000 ML IV SCH (00:55)
[2017-06-05] MEDS ORDERED: PANTOPRAZOLE SODIUM 40 MG VIAL IVP ONE (01:00)
[2017-06-05] MEDS ORDERED: SODIUM CHLORIDE 0.9% FLUSH 10 ML FLUSH IV FLUSH PRN (01:00)
[2017-06-05] MEDS ORDERED: PROCHLORPERAZINE INJ 10 MG/2 ML VIAL IV PUSH ONE (01:00)
[2017-06-05] MEDS ORDERED: FAMOTIDINE 20 MG/2 ML VIAL IV PUSH ONE (01:00)
[2017-06-05] MEDS ORDERED: HYDROmorphone HCL PF 2 MG/ML VIAL IVS ONE (01:00)
[2017-06-05] MEDS ORDERED: LORazepam 2 MG/ML VIAL IV PUSH ONE (01:15)
[2017-06-05 02:00] VITALS: BP 131/70; PULSE 63; RESP 16; O2SAT 99
[2017-06-05 03:00] VITALS: BP 118/65; PULSE 73; RESP 18; TEMP 97.8; O2SAT 99
[2017-06-05 07:49] VITALS: BP 124/72; PULSE 62; RESP 16; TEMP 97.4; O2SAT 98
--- NOTE | 2017-06-05 08:13 | HHI.HP ---
HPI Service [facility] Hospitalists Primary Care Physician Oleg Rosales M.D. Admission Diagnosis intractable abdominal pain/vomiting Chief Complaint: Abdominal pain, nausea vomiting Travel History International Travel<30 Days: No Contact w/Intl Traveler <30 Da: No Traveled to Known Affected Are: No History of Present Illness 26-year-old female presented to the emergency room last night with history of abdominal pain, nausea, vomiting and diarrhea that has been going on for past 8- 10 days. Patient had originally gone to the emergency room in the main hospital with the symptoms and was seen by the ER physician there on May. Labs and CT scan were performed. Essentially unremarkable exception of ovarian cyst. Patient was discharged home on pain medication prescription. The patient says after the symptoms continued she went to see her primary care doctor who put her on dicyclomine and another medication. Symptoms persisted so she presented again to the ER last night is noted. Patient reports she actually had GI problems since having her cholecystectomy in November 2016. She reports subsequent EGD and colonoscopy in January 2017 which she reports revealed gastritis and some questionable inflammation in her cecum. She reports early satiety and bloating and constipation since having her gallbladder removed. He has not had a gastric emptying study to her knowledge. Denies any fevers or chills. Denies any hematochezia or melena. Patient has already had cholecystectomy and appendectomy in the past. Her mother is here with her and confirms her medical history. The abdominal pain is generalized but mostly in the epigastrium and supraumbilical areas. No foreign travel. No radiation of the pain. She was given Compazine and Ativan in the ER which helped. The anti-medic medication she had at home was not helping. She reports nearly immediate relief with Compazine. Review of Systems Constitutional: COMPLAINS OF: Change in appetite, DENIES: Diaphoretic episodes , Fatigue, Fever, Weight gain, Weight loss, Chills, Dizziness, Night Sweats Endocrine: DENIES: Abnorml menstrual pattern, Heat/cold intolerance, Polydipsia , Polyuria, Polyphagia Eyes: DENIES: Blurred vision, Diplopia, Eye inflammation, Eye pain, Vision loss , Photosensitivity, Double Vision Ears, nose, mouth, throat: COMPLAINS OF: Hearing loss, DENIES: Tinnitus, Vertigo, Nasal discharge, Oral lesions, Throat pain, Hoarseness, Ear Pain, Running Nose, Epistaxis, Sinus Pain, Toothache, Odynophagia Respiratory: DENIES: Apneas, Cough, Snoring, Wheezing, Hemoptysis, Sputum production, Shortness of breath Cardiovascular: DENIES: Chest pain, Palpitations, Syncope, Dyspnea on Exertion , PND, Lower Extremity Edema, Orthopnea, Claudication Gastrointestinal: COMPLAINS OF: Abdominal pain, Black stools, Constipation, GERD, Nausea, Reflux, Vomiting, DENIES: Bloody stools, BRB per rectum, Diarrhea , Difficulty Swallowing, Anorexia, See HPI Musculoskeletal: DENIES: Joint pain, Muscle aches, Stiffness, Joint Swelling, Back pain, Neck pain Integumentary: DENIES: Abnormal pigmentation, Pruritus, Rash, Nail changes, Breast masses, Breast skin changes, Nipple discharge Hematologic/lymphatic: DENIES: Bruising, Lymphadenopathy Immunologic/allergic: DENIES: Eczema, Urticaria Neurologic: DENIES: Abnormal gait, Headache, Localized weakness, Paresthesias, Seizures, Speech Problems, Tremor, Poor Balance Psychiatric: COMPLAINS OF: Anxiety Past Family Social History Past Medical History Obesity GERD History of cholecystitis Generalized anxiety disorder Insomnia Congenital auditory dysfunction Past Surgical History Appendectomy 2011 Cholecystectomy November 2016 EGD and colonoscopy January or February 2017 Tonsillectomy and adenoidectomy as a child 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 Reported Medications [place] (Hydrocodone-Acetaminophen) 5 Mg-325 Mg Tab 1 Tab PO Q6H PRN Zofran Odt (Ondansetron Odt) 4 Mg Tab 4 Mg SL Q6HR PRN Pantoprazole (Pantoprazole Sodium) 20 Mg Tab 20 Mg PO DAILY Trazodone (Trazodone HCl) 100 Mg Tablet 100 Mg PO HS Loestrin Fe 1-20 Tablet (Norethindrone-E.estradiol-Iron) 1 Each Tablet 1 Tab PO HS Celexa (Citalopram Hydrobromide) 20 Mg Tab 20 Mg PO HS Allergies: Coded Allergies: codeine (Verified Allergy, Mild, 06/04/17) penicillin G (Verified Allergy, Mild, 06/04/17) Family History Father has COPD and emphysema as well as coronary artery disease Sister has Crohn's disease Mother alive and well Social History Single, Lives with her parents Originally from [place], moved to this area 5 years ago Works as a SHIP OFFICER for local physician No tobacco, rare alcohol approximately 1 drink a month or less Denies illicit drug use Physical Exam Vital Signs Vital Signs Date Time Temp Pulse Resp B/P (MAP) Pulse Ox O2 Delivery O2 Flow Rate FiO2 06/05/17 07:49 97.4 62 16 124/72 (89) 98 06/05/17 03:00 97.8 73 18 118/65 (82) 99 06/05/17 02:30 82 16 98 06/05/17 02:00 63 16 131/70 (90) 99 Room Air 06/04/17 23:44 60 16 131/67 (88) 99 Room Air 06/04/17 22:56 98 Room Air 06/04/17 22:14 16 06/04/17 21:37 98.9 84 18 142/91 (108) 98 Physical Exam GENERAL: This is a well-nourished, obese, well-developed patient, in no apparent distress. Sleeping, arouses to voice. Alert and oriented. SKIN: No rashes, ecchymoses or lesions. Cool and dry. HEAD: Atraumatic. Normocephalic. No temporal or scalp tenderness. EYES: Pupils equal round and reactive. Extraocular motions intact. No scleral icterus. No injection or drainage. ENT: Nose without bleeding, purulent drainage or septal hematoma. Airway patent. NECK: Trachea midline. No JVD or lymphadenopathy. Supple, nontender, no meningeal signs. CARDIOVASCULAR: Regular rate and rhythm without murmurs, gallops, or rubs. RESPIRATORY: Clear to auscultation. Breath sounds equal bilaterally. No wheezes , rales, or rhonchi. GASTROINTESTINAL: Abdomen soft, nondistended. Mild tenderness to palpation in epigastrium. No hepato-splenomegaly, or palpable masses. No guarding or rebound. Bowel sounds normal. MUSCULOSKELETAL: Extremities without clubbing, cyanosis, or edema. No joint tenderness, effusion, or edema noted. No calf tenderness. NEUROLOGICAL: Awake and alert. Cranial nerves II through XII intact. Motor and sensory grossly within normal limits. Five out of 5 muscle strength in all muscle groups. Normal speech. Laboratory Laboratory Tests Test 06/04/17 22:25 06/04/17 22:45 Urine Color YELLOW Urine Turbidity SLIGHT Urine pH 6.0 Urine Specific [place] 1.010 Urine Protein NEG Urine Glucose (UA) NEG Urine Ketones NEG Urine Occult Blood NEG Urine Nitrite NEG Urine Bilirubin NEG Urine Leukocyte Esterase SMALL Urine RBC 0-3 Urine WBC 3-5 Urine Squamous Epithelial Cells 0-5 Urine Amorphous Sediment FEW Urine Bacteria OCC Urine Mucus OCC Microscopic Urinalysis Comment CULT NOT INDICATED White Blood Count 8.8 Red Blood Count 4.69 Hemoglobin 13.8 Hematocrit 40.1 Mean Corpuscular Volume 85.6 Mean Corpuscular Hemoglobin 29.4 Mean Corpuscular Hemoglobin Concent 34.3 Red Cell Distribution Width 11.7 Platelet Count 264 Mean Platelet Volume 7.5 Neutrophils (%) (Auto) 62.7 Lymphocytes (%) (Auto) 27.0 Monocytes (%) (Auto) 6.4 Eosinophils (%) (Auto) 2.5 Basophils (%) (Auto) 1.4 Neutrophils # (Auto) 5.5 Lymphocytes # (Auto) 2.4 Monocytes # (Auto) 0.6 Eosinophils # (Auto) 0.2 Basophils # (Auto) 0.1 CBC Comment DIFF FINAL Differential Comment Blood Urea Nitrogen 7 Creatinine 0.70 Random Glucose 93 Total Protein 7.2 Albumin 3.4 Calcium Level 8.7 Alkaline Phosphatase 50 Aspartate Amino Transf (AST/SGOT) 26 Alanine Aminotransferase (ALT/SGPT) 26 Total Bilirubin 0.3 Sodium Level 139 Potassium Level 4.0 Chloride Level 108 Carbon Dioxide Level 23.3 Anion Gap 8 Estimat Glomerular Filtration Rate 102 Lipase 199 Human Chorionic Gonadotropin, Quant LESS THAN 1 Result Diagram: 06/04/17224406/04/172244 Caprini VTE Risk Assessment Caprini VTE Risk Assessment: No/Low Risk (score <= 1) Caprini Risk Assessment Model Point Value = 1 Point Value = 2 Point Value = 3 Point Value = 5 Age 41-60 Minor surgery BMI > 25 kg/m2 Swollen legs Varicose veins or History of unexplained or recurrent spontaneous Oral contraceptives or hormone replacement Sepsis (< 1 month) Serious lung disease, including pneumonia (< 1 month) Abnormal pulmonary function Acute myocardial infarction Congestive heart failure (< 1 month) History of inflammatory bowel disease Medical patient at bed rest Age 61-74 Arthroscopic surgery Major open surgery (> 45 min) Laparoscopic surgery (> 45 min) Malignancy Confined to bed (> 72 hours) Immobilizing plaster cast Central venous access Age >= 75 History of VTE Family history of VTE Factor V Leiden Prothrombin [id number] Lupus anticoagulant Anticardiolipin antibodies Elevated serum homocysteine Heparin-induced thrombocytopenia Other congenital or acquired thrombophilia Stroke (< 1 month) Elective arthroplasty Hip, pelvis, or leg fracture Acute spinal cord injury (< 1 month) Prophylaxis Regimen Total Risk Factor Score Risk Level Prophylaxis Regimen 0-1 Low Early ambulation 2 Moderate Order ONE of the following: *Sequential Compression Device (SCD) *Heparin 5000 units SQ BID 3-4 Higher Order ONE of the following medications: *Heparin 5000 units SQ TID *Enoxaparin/Lovenox 40 mg SQ daily (WT < 150 kg, CrCl > 30 mL/min) *Enoxaparin/Lovenox 30 mg SQ daily (WT < 150 kg, CrCl > 10-29 mL/min) *Enoxaparin/Lovenox 30 mg SQ BID (WT < 150 kg, CrCl > 30 mL/min) AND/OR *Sequential Compression Device (SCD) 5 or more Highest Order ONE of the following medications: *Heparin 5000 units SQ TID (Preferred with Epidurals) *Enoxaparin/Lovenox 40 mg SQ daily (WT < 150 kg, CrCl > 30 mL/min) *Enoxaparin/Lovenox 30 mg SQ daily (WT < 150 kg, CrCl > 10-29 mL/min) *Enoxaparin/Lovenox 30 mg SQ BID (WT < 150 kg, CrCl > 30 mL/min) AND *Sequential Compression Device (SCD) Assessment and Plan Problem List: (1) Abdominal pain, epigastric ICD Codes: R10.13 - Epigastric pain Status: Chronic Plan: Apparently had a flare recently of the chronic epigastric pain she's had since her gallbladder was removed in November 2016. Some of her symptoms seem consistent with gastroparesis particularly the early satiety, bloating, constipation which is all noted since her cholecystectomy. She seems to respond well to Compazine and Ativan dose. We'll continue proton pump inhibitor. Add Carafate and bethanechol. Check gastric empty study. Hopefully discharge home later today if she tolerates oral intake. (2) Anxiety ICD Codes: F41.9 - Anxiety disorder, unspecified Status: Chronic Plan: Ativan as needed. I've advised that she may want to switch from Celexa to Wellbutrin to get away from the SSRIs given her GI complaints. She will discuss with her primary care provider as an outpatient. I've advised that she will need tapering on the Celexa since she's been on for quite some time. (3) GERD (gastroesophageal reflux disease) ICD Codes: K21.9 - Gastro-esophageal reflux disease without esophagitis Status: Chronic Plan: Continue Protonix (the PPI that works best for her. Had EGD several months ago. Outpatient follow with GI if her symptoms continue. Code Status Full Discussed Condition With Patient, her mother and ER provider Sundar Mesa MD PhD Jun 05, 2017 08:13
[2017-06-05] MEDS ORDERED: LORazepam 2 MG/ML VIAL IV PUSH PRN (08:15)
[2017-06-05] MEDS ORDERED: PROMETHAZINE HCL 25 MG SUPP RECTAL PRN (08:15)
[2017-06-05] MEDS ORDERED: PROCHLORPERAZINE MALEATE 5 MG TAB PO PRN (08:45)
[2017-06-05] MEDS ORDERED: CITALOPRAM HYDROBROMIDE 20 MG TAB PO SCH ×2 (09:00→21:00)
[2017-06-05] MEDS ORDERED: PANTOPRAZOLE SOD 40 MG DELAYED RELEASE TAB PO SCH (09:00)
[2017-06-05] MEDS ORDERED: PNEUMOCOCCAL POLYVALENT INJ 25 MCG/0.5 ML SYR IM ONE (10:00)
[2017-06-05 12:00] VITALS: BP 124/80; PULSE 61; RESP 16; TEMP 98.1; O2SAT 97
[2017-06-05] MEDS: SUCRALFATE 1 GM/10 ML CUP PO SCH ×3 (12:19→20:50)
[2017-06-05] MEDS ORDERED: METOCLOPRAMIDE HCL 10 MG/2 ML VIAL IV ONE (14:26)
--- NOTE | 2017-06-05 15:40 | RADRPT ---
EXAM DATE/TIME: 06/05/2017 12:39 [facility] COMPARISON: No previous studies available for comparison. INDICATIONS : Abdominal pain with nausea and vomiting for two weeks. DOSE: 1.1 mCi Tc99m Sulfur Colloid Labeled Whole egg PO MEDICATONS: 1.) 5 mg Reglan IV at 90 minutes IMAGIN hrs MEDICAL HISTORY : Gastroesophageal reflux disease. SURGICAL HISTORY : Cholecystectomy. Tonsillectomy. Appendectomy. ENCOUNTER: Initial ACUITY: 2 weeks PAIN SCALE: 4/10 LOCATION: Bilateral upper quadrant TECHNIQUE: Following the oral ingestion of radiotracer-labeled meal, dynamic sequential images in the SLOVENIAN projec tion were acquired with simultaneous computer acquisition. The data set was decay-corrected. FINDINGS: LAG PHASE: There is prompt onset of gastric emptying. EMPTYING: Gastric emptying kinetics are linear. The decay-corrected, back-extrapolated half-time of emptying i s 55 minutes. (Normal for this lab is 45- 90 minutes.) INTERVENTION: There is augmentation in the rate of gastric emptying after IV. CONCLUSION: Normal gastric emptying half-time and kinetics. Cezar Hunter MD on June 05, 2017 at 15:37 Board Certified Radiologist. This report was verified electronically.
[2017-06-05 16:00] VITALS: BP 127/80; PULSE 63; RESP 16; TEMP 98.9; O2SAT 98
--- NOTE | 2017-06-05 16:09 | HHI.PR ---
Addendum to Inpatient Note Addendum Reason: Additional Documentation Additional Information Reviewed GES with pt. She reports that she felt better after reglan. She has developed nausea again with epigastric pain, but not as severe as before. Will keep her o/n to see how she tolerates diet and promotilic med. Plan d/c in AM if she does well. Sundar Mesa MD PhD Jun 05, 2017 16:09
[2017-06-05] MEDS: BETHANECHOL CHL 10 MG TAB PO SCH ×2 (16:26→22:28)
[2017-06-05 20:00] VITALS: BP 128/68; PULSE 80; RESP 19; TEMP 98.2; O2SAT 98
[2017-06-05] MEDS: SODIUM CHLORIDE 0.9% FLUSH 10 ML FLUSH IV FLUSH PRN ×2 (20:49→22:28)
[2017-06-05] MEDS ORDERED: traZODone HCL 100 MG TAB PO SCH (21:00)
[2017-06-06] VITALS: BP 122/71; PULSE 77; RESP 18; TEMP 98; O2SAT 97
[2017-06-06] MEDS: BETHANECHOL CHL 10 MG TAB PO SCH (05:52)
--- NOTE | 2017-06-06 07:44 | HHI.PR ---
Subjective Remarks Feeling better. Still with nausea and had significant burning in her epigastric area last night after eating. No vomiting. No diarrhea. Still no bowel movement, but has had flatus. Objective Vitals Vital Signs Date Time Temp Pulse Resp B/P (MAP) Pulse Ox O2 Delivery O2 Flow Rate FiO2 06/06/17 00:00 98.0 77 18 122/71 (88) 97 06/05/17 20:00 98.2 80 19 128/68 (88) 98 06/05/17 16:00 98.9 63 16 127/80 (96) 98 06/05/17 12:00 98.1 61 16 124/80 (95) 97 06/05/17 07:49 97.4 62 16 124/72 (89) 98 GENERAL: Awake, alert and oriented. No acute distress. SKIN: Warm and dry. HEAD: Normocephalic. EYES: No scleral icterus. No injection or drainage. NECK: Supple, trachea midline. No JVD or lymphadenopathy. CARDIOVASCULAR: Regular rate and rhythm without murmurs, gallops, or rubs. RESPIRATORY: Breath sounds equal bilaterally. No accessory muscle use. GASTROINTESTINAL: Abdomen soft, non-tender, nondistended. Bowel sounds slightly diminished. No guarding or rebound. MUSCULOSKELETAL: No cyanosis, or edema. BACK: Nontender without obvious deformity. No CVA tenderness. Result Diagram: 06/04/17224406/04/17 2245 Imaging Last 72 hours Impressions Gastric Emptying Nuclear Medicine 06/05/17 0000 Signed Impressions: Service Date/Time: Monday, June 05, 2017 12:39 - CONCLUSION: Normal gastric emptying half-time and kinetics. Cezar Hunter MD Urinary Catheter: No Vascular Central Line Catheter: No A/P Problem List: (1) Abdominal pain, epigastric ICD Codes: R10.13 - Epigastric pain Status: Chronic Plan: Apparently had a flare recently of the chronic epigastric pain she's had since her gallbladder was removed in November 2016. Some of her symptoms seem consistent with gastroparesis particularly the early satiety, bloating, constipation which is all noted since her cholecystectomy. Overall doing better. Gastric emptying study essentially normal but she responded quite well to Reglan she says. We'll continue bethanechol, increase her Protonix to twice a day for a short time, add Carafate for short time. We use Compazine and Phenergan at home as he seemed to work better for her. She will follow-up as outpatient with GI. I've advised patient that we do not have definitive etiology of her symptoms but she is stable for outpatient workup. (2) Anxiety ICD Codes: F41.9 - Anxiety disorder, unspecified Status: Chronic Plan: Ativan as needed. I've advised that she may want to switch from Celexa to Wellbutrin to get away from the SSRIs given her GI complaints. She will discuss with her primary care provider as an outpatient. I've advised that she will need tapering on the Celexa since she's been on for quite some time. (3) GERD (gastroesophageal reflux disease) ICD Codes: K21.9 - Gastro-esophageal reflux disease without esophagitis Status: Chronic Plan: Continue Protonix (the PPI that works best for her). We'll increase Protonix to twice a day for short time. Had EGD several months ago. Outpatient follow with GI if her symptoms continue. Discharge Planning Discharge home today. Outpatient follow-up with primary care and GI. Sundar Mesa MD PhD Jun 06, 2017 07:44
[2017-06-06] MEDS ORDERED: PANT40TA3 PO (07:47)
[2017-06-06] MEDS ORDERED: BETH10 PO (07:47)
[2017-06-06] MEDS ORDERED: PROM25SU RECTAL (07:47)
[2017-06-06] MEDS ORDERED: PROC5TAB PO (07:51)
[2017-06-06] MEDS ORDERED: SUCR1S PO (07:51)
[2017-06-06 08:00] VITALS: BP 120/78; PULSE 76; RESP 18; TEMP 98.6; O2SAT 98
== END 2017-06-06 09:21 | disposition home or self-care (01) ==
LOC: PHED 21:32 → PHEDA 06-05 01:06 → PH3B 06-05 02:31
PROVIDERS: ADMIT Family Medicine; ATTEND Family Medicine
DX: R10.13 Epigastric pain (principal); F41.1 Generalized anxiety disorder; K21.9 Gastro-esophageal reflux disease without esophagitis; R19.7 Diarrhea, unspecified; R11.2 Nausea with vomiting, unspecified; J45.909 Unspecified asthma, uncomplicated; F32.9 Major depressive disorder, single episode, unspecified; I10 Essential (primary) hypertension; Z79.899 Other long term (current) drug therapy; E66.9 Obesity, unspecified; K59.00 Constipation, unspecified; R68.81 Early satiety; R14.0 Abdominal distension (gaseous); G47.00 Insomnia, unspecified; Z23 Encounter for immunization
CPT/HCPCS: 78264; 80053; 81001; 83690; 84702; 84703; 85025; 90732; 96361; 96374; 96375; 96376; 99285; A9541; C9113; G0009; G0378; J0780; J2060; J2405; J2765; J7030; 90471

== ENCOUNTER 2017-07-06 10:52 | Emergency (ER) | payer OTHER ==
[~2017-07-06] VITALS: Ht 172.7 cm; Wt 103.7 kg
[~2017-07-06 10:52] MED LIST changes: +BETH10 PO; -OXYC1TAB63 PO; +PANT40TA3 PO; +PROC5TAB PO; +PROM25SU RECTAL; +SUCR1S PO; -TRAZ50TA12 PO
[2017-07-06 10:58] VITALS: BP 147/80; PULSE 90; RESP 16; TEMP 98.6; O2SAT 97
[2017-07-06] MEDS ORDERED: LINA145C PO (11:18)
[2017-07-06] MEDS ORDERED: BUPR100T4 PO (11:18)
[2017-07-06 11:40] LABS: BILIRUBIN, URINE NEG (NEG); BLOOD, URINE TRACE (NEG); GLUCOSE,URINE NEG (NEG); KETONE, URINE NEG (NEG); NITRITE,URINE NEG (NEG); PH, URINE 5.5 (5.0-8.5); URINE COLOR YELLOW (YELLW/STRAW); URINE LEUKOCYTE ESTERASE TRACE (NEG)
[2017-07-06] MEDS ORDERED: LORazepam 2 MG/ML VIAL IV PUSH ONE (11:45)
[2017-07-06] MEDS ORDERED: PROCHLORPERAZINE INJ 10 MG/2 ML VIAL IV PUSH ONE (11:45)
[2017-07-06 11:48] LABS: SQUAMOUS EPITHELIAL CELL URINE > 8 /hpf (0-5)
--- NOTE | 2017-07-06 11:48 | PD ---
HPI Chief Complaint: Abdominal Pain Time Seen by Provider: 11:09 Travel History International Travel<30 days: No Contact w/Intl Traveler<30days: No Traveled to known affect area: No History of Present Illness HPI 26yo F with PMH of anxiety, GERD, chronic abdominal pain and nausea here with c/ o right sided abdominal pain for 3 days. Pt has been having intermittent nausea and vomiting for 2-3 weeks. Pt is currently being work up by Dr. Sandoval for IBS and has blood works pending. Pt had CT a/p in 05/2017 that showed adnexal cyst and gastric emptying study in 05/2017 that was negative. Pt was admitted in 05/2017 for intractable abdominal pain and vomiting and as per Dr. Junior's note, pt responds well to compazine and ativan. Pt said ever since her gallbladder was removed, she has problems with bowel movement and constipation. Said last BM was 8 days ago. Denies any fever, chest pain, sob, dysuria, hematuria, vaginal discharge or bleeding. PSH include appendectomy and cholecystectomy. PFSH Past Medical History Asthma: Yes Anxiety: Yes Depression: Yes Cancer: No Cardiovascular Problems: Yes High Cholesterol: No Diabetes: No Diminished Hearing: No Endocrine: No Gastrointestinal Disorders: Yes (appendectomy (2012)) GERD: Yes Genitourinary: No Hypertension: Yes Immune Disorder: No Implanted Vascular Access Dvce: No Musculoskeletal: No Neurologic: No Psychiatric: Yes Reproductive: No Respiratory: Yes Ulcer: Yes (CURRENTLY PER PT) Tetanus Vaccination: < 5 Years ?: Not LMP: 06/14/17 Past Surgical History Appendectomy: Yes Ear Surgery: Yes Eye Surgery: Yes Oral Surgery: Yes (tonsillectomy) Tonsillectomy: Yes Other Surgery: Yes Social History Alcohol Use: No Tobacco Use: No Substance Use: No Allergies-Medications (Allergen,Severity, Reaction): Coded Allergies: codeine (Verified Allergy, Mild, 07/06/17) penicillin G (Verified Allergy, Mild, 07/06/17) Reported Meds & Prescriptions Reported Meds & Active Scripts Active Sucralfate Liq (Sucralfate) 1 Gram/10 Ml Megan 1 Gm PO ACHS Prochlorperazine Maleate 5 Mg Tab 10 Mg PO Q6H PRN Pantoprazole (Pantoprazole Sodium) 40 Mg Tab 40 Mg PO BID Promethegan Supp (Promethazine HCl) 25 Mg Supp 25 Mg RECTAL Q6H PRN Zofran Odt (Ondansetron Odt) 4 Mg Tab 4 Mg SL Q6HR PRN Reported Linzess (Linaclotide) 145 Mcg Cap 145 Mcg PO DAILY Bupropion HCl 100 Mg Tab 100 Mg PO HS Trazodone (Trazodone HCl) 100 Mg Tablet 100 Mg PO HS Loestrin Fe 1-20 Tablet (Norethindrone-E.estradiol-Iron) 1 Each Tablet 1 Tab PO HS Review of Systems Except as stated in HPI: all other systems reviewed are Neg Physical Exam Narrative GENERAL: 26yo F not in distress. SKIN: Focused skin assessment warm/dry. HEAD: Atraumatic. Normocephalic. CARDIOVASCULAR: Regular rate and rhythm. No murmur appreciated. RESPIRATORY: No accessory muscle use. Clear to auscultation. Breath sounds equal bilaterally. GASTROINTESTINAL: Abdomen soft, +TTP right of periumbilical region. No rebound tenderness or guarding. MUSCULOSKELETAL: No obvious deformities. No clubbing. No cyanosis. No edema. NEUROLOGICAL: Awake and alert. No obvious cranial nerve deficits. Motor grossly within normal limits. Normal speech. PSYCHIATRIC: Appropriate mood and affect; insight and judgment normal. Data Data Last Documented VS Vital Signs Date Time Temp Pulse Resp B/P (MAP) Pulse Ox O2 Delivery O2 Flow Rate FiO2 07/06/17 10:58 98.6 90 16 147/80 (102) 97 Orders Orders Urinalysis - C+S If Indicated (07/06/17 10:58) Ed Urine Pregnancytest Poc (07/06/17 10:58) Abdomen, Flat & Upright (07/06/17 ) Complete Blood Count With Diff (07/06/17 11:36) Comprehensive Metabolic Panel (07/06/17 11:36) Lipase (07/06/17 11:36) Prochlorperazine Inj (Compazine Inj) (07/06/17 11:45) Lorazepam Inj (Ativan Inj) (07/06/17 11:45) Fleets Enema (Adult) (Fleets Enema (Adul (07/06/17 13:45) Ed Discharge Order (07/06/17 13:37) Labs Laboratory Tests Test 07/06/17 11:05 07/06/17 11:35 Urine Collection Type CLEAN CATCH Urine Color YELLOW Urine Turbidity CLEAR Urine pH 5.5 Urine Specific [place] 1.015 Urine Protein NEG mg/dL Urine Glucose (UA) NEG mg/dL Urine Ketones NEG mg/dL Urine Occult Blood TRACE Urine Nitrite NEG Urine Bilirubin NEG Urine Urobilinogen 0.2 MG/DL Urine Leukocyte Esterase TRACE Urine RBC 4-9 /hpf Urine WBC 3-5 /hpf Urine Squamous Epithelial Cells > 8 /hpf Microscopic Urinalysis Comment CULT NOT INDICATED Urine Collection Time 11:05 White Blood Count 7.0 TH/MM3 Red Blood Count 4.62 MIL/MM3 Hemoglobin 13.4 GM/DL Hematocrit 40.3 % Mean Corpuscular Volume 87.1 FL Mean Corpuscular Hemoglobin 29.1 PG Mean Corpuscular Hemoglobin Concent 33.4 % Red Cell Distribution Width 11.7 % Platelet Count 254 TH/MM3 Mean Platelet Volume 7.8 FL Neutrophils (%) (Auto) 68.4 % Lymphocytes (%) (Auto) 21.9 % Monocytes (%) (Auto) 6.7 % Eosinophils (%) (Auto) 2.2 % Basophils (%) (Auto) 0.8 % Neutrophils # (Auto) 4.7 TH/MM3 Lymphocytes # (Auto) 1.5 TH/MM3 Monocytes # (Auto) 0.5 TH/MM3 Eosinophils # (Auto) 0.2 TH/MM3 Basophils # (Auto) 0.1 TH/MM3 CBC Comment DIFF FINAL Differential Comment Blood Urea Nitrogen 8 MG/DL Creatinine 0.71 MG/DL Random Glucose 92 MG/DL Total Protein 7.6 GM/DL Albumin 3.3 GM/DL Calcium Level 8.9 MG/DL Alkaline Phosphatase 50 U/L Aspartate Amino Transf (AST/SGOT) 10 U/L Alanine Aminotransferase (ALT/SGPT) 20 U/L Total Bilirubin 0.3 MG/DL Sodium Level 140 MEQ/L Potassium Level 3.8 MEQ/L Chloride Level 108 MEQ/L Carbon Dioxide Level 24.7 MEQ/L Anion Gap 7 MEQ/L Estimat Glomerular Filtration Rate 100 ML/MIN Lipase 176 U/L [facility] Medical Decision Making Medical Screen Exam Complete: Yes Emergency Medical Condition: Yes Differential Diagnosis IBS vs. obstruction vs. chronic abdominal pain vs. cyclic vomiting vs. dehydration vs. electrolyte abnormality vs. Narrative Course 26yo F with chronic abdominal pain here with nausea and abdominal pain. Pt had recent admission and compazine and ativan work well so given those medications. Labs reviewed, no leukocytosis. H/H normal. Lipase normal. CMP unremarkable. Urine negative. UA showed squamous cell. WBC 3-5. Xray abdomen showed no air fluid levels. Moderate stool throughout colon. Benign abdomen. Pt reevaluated at bedside and feels much better. Abdominal pain resolved and nausea resolved. Pt said she takes colace but would like a fleet enema to try at home. She has appointment with Dr. Sandoval this Monday. Return precautions given. Diagnosis Primary Impression: NAUSEA WITH VOMITING, UNSPECIFIED Additional Impression: Constipation Qualified Codes: K59.00 - Constipation, unspecified Patient Instructions: General Instructions Departure Forms: Tests/Procedures Additional Instructions: Please follow up with Dr. Sandoval this week. Return to the ED if symptoms worsen. Med/Other Pt SpecificInfo: No Change to Meds Disposition: 01 DISCHARGE HOME Condition: Stable Leigh Sierra DO Jul 06, 2017 11:48
[2017-07-06 11:52] LABS: AUTOMATED NEUTROPHIL # 4.7 TH/MM3 (1.8-7.7); BASOPHIL # 0.1 TH/MM3 (0-0.2); BASOPHIL % 0.8 % (0.0-2.0); EOSINOPHIL # 0.2 TH/MM3 (0-0.4); EOSINOPHIL % 2.2 % (0.0-4.0); HEMATOCRIT 40.3 % (35.0-46.0); HEMOGLOBIN 13.4 GM/DL (11.6-15.3); LYMPH % 21.9 % (9.0-44.0); LYMPHOCYTE # 1.5 TH/MM3 (1.0-4.8); MEAN CELL VOLUME 87.1 FL (80.0-100.0); MEAN CORPUSCULAR HEMOGLOBIN 29.1 PG (27.0-34.0); MEAN CORPUSCULAR HGB CONC 33.4 % (32.0-36.0); MEAN PLATELET VOLUME 7.8 FL (7.0-11.0); MONO % 6.7 % (0.0-8.0); MONOCYTE # 0.5 TH/MM3 (0-0.9); NEUT % 68.4 % (16.0-70.0); PLATELET COUNT 254 TH/MM3 (150-450); RED BLOOD COUNT 4.62 MIL/MM3 (4.00-5.30); RED CELL DISTRIBUTION WIDTH 11.7 % (11.6-17.2)
[2017-07-06 11:59] LABS: CHLORIDE 108 MEQ/L (98-107); SODIUM (NA) 140 MEQ/L (136-145)
[2017-07-06 12:03] LABS: CALCIUM 8.9 MG/DL (8.5-10.1)
[2017-07-06 12:04] LABS: ALBUMIN 3.3 GM/DL (3.4-5.0); BICARBONATE 24.7 MEQ/L (21.0-32.0); BLOOD UREA NITROGEN 8 MG/DL (7-18); GLUCOSE,RANDOM 92 MG/DL (74-106)
[2017-07-06 12:07] LABS: ALT (GPT) 20 U/L (10-53); AST (GOT) 10 U/L (15-37); CREATININE 0.71 MG/DL (0.50-1.00); GLOMERULAR FILTRATION RATE 100 ML/MIN (>89)
[2017-07-06 12:08] LABS: TOTAL BILIRUBIN ADULT 0.3 MG/DL (0.2-1.0); TOTAL PROTEIN 7.6 GM/DL (6.4-8.2)
[2017-07-06 12:09] LABS: ALKALINE PHOSPHATASE 50 U/L (45-117)
--- NOTE | 2017-07-06 12:31 | RADRPT ---
EXAM DATE/TIME: 07/06/2017 12:14 [facility] COMPARISON: No previous studies available for comparison. INDICATIONS : Abdominal pain; chronic constipation. MEDICAL HISTORY : Hypertension. Gastroesophageal reflux disease. Asthma. SURGICAL HISTORY : Appendectomy. Cholecystectomy. ENCOUNTER: Initial ACUITY: 4 - 6 days PAIN SCORE: 6/10 LOCATION: Bilateral abdomen. FINDINGS: Supine and upright views of the abdomen were performed. The abdominal bowel gas pattern is normal. No air fluid levels are seen. There is moderate stool throughout the colon. There are surgical clips in the right upper quadrant.. The visualized lower lungs are clear. No evidence of free intraperito sofia gas. The osseous structures are unremarkable. CONCLUSION: Benign abdomen. Moderate stool in the colon. J Luis Alba MD on July 06, 2017 at 12:28 Board Certified Radiologist. This report was verified electronically.
[2017-07-06 13:43] VITALS: BP 119/68
[2017-07-06] MEDS ORDERED: SOD PHOSPHATE/SOD BIPHOSPHATE (ADULT) ENEMA 133ML RECTAL ONE (13:45)
== END 2017-07-06 14:10 | disposition home or self-care (01) ==
LOC: PHED 10:52
DX: R11.2 Nausea with vomiting, unspecified (principal); K59.00 Constipation, unspecified; I10 Essential (primary) hypertension; K21.9 Gastro-esophageal reflux disease without esophagitis; F41.8 Other specified anxiety disorders; Z87.09 Personal history of other diseases of the respiratory system; Z86.79 Personal history of other diseases of the circulatory system; Z87.19 Personal history of other diseases of the digestive system
CPT/HCPCS: 74019; 80053; 81001; 83690; 84703; 85025; 96374; 96375; 99284; J0780; J2060

== ENCOUNTER 2017-08-30 19:35 | Emergency (ER) | payer OTHER ==
[~2017-08-30] VITALS: Ht 172.7 cm; Wt 104.6 kg
[~2017-08-30 19:35] MED LIST changes: -BETH10 PO; +BUPR100T4 PO; -CELE10TA PO; +LINA145C PO; -NORC5TAB PO
[2017-08-30 19:40] VITALS: BP 148/83; PULSE 100; RESP 18; TEMP 98.7; O2SAT 98
[2017-08-30] MEDS ORDERED: CELE20TA PO (20:03)
[2017-08-30] MEDS ORDERED: SODIUM CHLOR 0.9% 1000 ML INJ 1,000 ML IV ONE (20:05)
[2017-08-30] MEDS ORDERED: AMIT8CAP6 PO (20:05)
[2017-08-30] MEDS ORDERED: PROT40TA PO (20:05)
[2017-08-30] MEDS ORDERED: SODIUM CHLORIDE 0.9% FLUSH 10 ML FLUSH IVF PRN (20:15)
[2017-08-30 20:32] VITALS: BP_SYST 136; BP_SYST 145; BP_DIAS 70; BP_DIAS 77; BP_DIAS 79; RESP 18
[2017-08-30 20:40] VITALS: O2SAT 100
[2017-08-30 20:49] LABS: AUTOMATED NEUTROPHIL # 5.1 TH/MM3 (1.8-7.7); BASOPHIL # 0.1 TH/MM3 (0-0.2); BASOPHIL % 0.9 % (0.0-2.0); EOSINOPHIL # 0.1 TH/MM3 (0-0.4); EOSINOPHIL % 1.6 % (0.0-4.0); HEMATOCRIT 35.2 % (35.0-46.0); HEMOGLOBIN 12.4 GM/DL (11.6-15.3); LYMPH % 27.6 % (9.0-44.0); LYMPHOCYTE # 2.2 TH/MM3 (1.0-4.8); MEAN CELL VOLUME 86.1 FL (80.0-100.0); MEAN CORPUSCULAR HEMOGLOBIN 30.4 PG (27.0-34.0); MEAN CORPUSCULAR HGB CONC 35.3 % (32.0-36.0); MEAN PLATELET VOLUME 7.5 FL (7.0-11.0); MONO % 6.9 % (0.0-8.0); MONOCYTE # 0.6 TH/MM3 (0-0.9); PLATELET COUNT 278 TH/MM3 (150-450); RED BLOOD COUNT 4.09 MIL/MM3 (4.00-5.30); RED CELL DISTRIBUTION WIDTH 12.4 % (11.6-17.2); WHITE BLOOD COUNT 8.1 TH/MM3 (4.0-11.0)
[2017-08-30 20:51] LABS: BILIRUBIN, URINE NEG (NEG); BLOOD, URINE NEG (NEG); GLUCOSE,URINE NEG (NEG); KETONE, URINE NEG (NEG); NITRITE,URINE NEG (NEG); URINE COLOR YELLOW (YELLW/STRAW); URINE LEUKOCYTE ESTERASE MOD (NEG)
[2017-08-30 20:59] LABS: BACTERIA, URINE OCC /hpf; RBC, URINE 0-3 /hpf (0-3); WBC, URINE 0-2 /hpf (0-5)
[2017-08-30 21:04] LABS: CHLORIDE 109 MEQ/L (98-107); SODIUM (NA) 141 MEQ/L (136-145)
[2017-08-30 21:07] LABS: ALBUMIN 3.4 GM/DL (3.4-5.0); BICARBONATE 25.6 MEQ/L (21.0-32.0); CALCIUM 8.7 MG/DL (8.5-10.1); PROTHROMBIN TIME - PATIENT 9.7 SEC (9.8-11.6)
[2017-08-30 21:08] LABS: BLOOD UREA NITROGEN 7 MG/DL (7-18); GLUCOSE,RANDOM 96 MG/DL (74-106); MAGNESIUM 2.1 MG/DL (1.5-2.5)
[2017-08-30 21:10] LABS: ALT (GPT) 24 U/L (10-53)
[2017-08-30 21:11] LABS: AST (GOT) 10 U/L (15-37); CREATININE 0.64 MG/DL (0.50-1.00); GLOMERULAR FILTRATION RATE 113 ML/MIN (>89)
[2017-08-30 21:12] LABS: TOTAL BILIRUBIN ADULT 0.4 MG/DL (0.2-1.0); TOTAL PROTEIN 7.3 GM/DL (6.4-8.2)
[2017-08-30 21:13] LABS: ALKALINE PHOSPHATASE 53 U/L (45-117)
--- NOTE | 2017-08-30 21:15 | RADRPT ---
EXAM DATE/TIME: 08/30/2017 20:33 [facility] COMPARISON: No previous studies available for comparison. INDICATIONS : Syncopal episode today MEDICAL HISTORY : None. SURGICAL HISTORY : None. ENCOUNTER: Initial ACUITY: 1 day PAIN SCORE: 0/10 LOCATION: Bilateral chest FINDINGS: A single view of the chest demonstrates the lungs to be symmetrically aerated without evidence of mas s, infiltrate or effusion. The cardiomediastinal contours are unremarkable. Osseous structures are intact. CONCLUSION: Normal examination. Radames Watson MD on August 30, 2017 at 21:12 Board Certified Radiologist. This report was verified electronically.
[2017-08-30 21:16] LABS: TROPONIN I LESS THAN 0.02 NG/ML (0.02-0.05)
--- NOTE | 2017-08-30 21:30 | RADRPT ---
EXAM DATE/TIME: 08/30/2017 20:52 [facility] COMPARISON: No previous studies available for comparison. INDICATIONS : Dizziness with cephalgia. RADIATION DOSE: 51.86 CTDIvol (mGy) MEDICAL HISTORY : Hypertension. SURGICAL HISTORY : None. ENCOUNTER: Initial ACUITY: 1 day PAIN SCALE: 5/10 LOCATION: cranial TECHNIQUE: Multiple contiguous axial images were obtained of the head. Using automated exposure control and adj ustment of the mA and/or kV according to patient size, radiation dose was kept as low as reasonably a chievable to obtain optimal diagnostic quality images. DICOM format image data is available electro nically for review and comparison. FINDINGS: CEREBRUM: The ventricles are normal for age. No evidence of midline shift, mass lesion, hemorrhage or acute in farction. No extra-axial fluid collections are seen. POSTERIOR FOSSA: The cerebellum and brainstem are intact. The 4th ventricle is midline. The cerebellopontine angle i s unremarkable. EXTRACRANIAL: The visualized portion of the orbits is intact. There is a small calcification in the right frontal s calp. SKULL: The calvaria is intact. No evidence of skull fracture. CONCLUSION: No acute disease. Radames Watson MD on August 30, 2017 at 21:25 Board Certified Radiologist. This report was verified electronically.
[2017-08-30 22:00] VITALS: BP 144/80; PULSE 68; RESP 18; O2SAT 99
[2017-08-30] MEDS ORDERED: KETOROLAC TROMETHAMINE 30 MG/ML (IVP) VIAL IV PUSH ONE (22:00)
[2017-08-30] MEDS ORDERED: ONDANSETRON ODT 4 MG TAB PO ONE (22:00)
[2017-08-30] MEDS ORDERED: PROM25TA10 PO (22:21)
--- NOTE | 2017-08-30 22:26 | PD ---
HPI Chief Complaint: Syncope/Near-Syncope Time Seen by Provider: 20:05 Travel History International Travel<30 days: No Contact w/Intl Traveler<30days: No Traveled to known affect area: No PFSH Past Medical History Asthma: Yes Anxiety: Yes Depression: Yes Cancer: No Cardiovascular Problems: Yes High Cholesterol: No Diabetes: No Diminished Hearing: No Endocrine: No Gastrointestinal Disorders: Yes (appendectomy (2013)) GERD: Yes Genitourinary: No Hypertension: Yes Immune Disorder: No Implanted Vascular Access Dvce: No Musculoskeletal: No Neurologic: No Psychiatric: Yes Reproductive: No Respiratory: Yes Ulcer: Yes (CURRENTLY PER PT) Tetanus Vaccination: < 5 Years Influenza Vaccination: Yes ?: Not LMP: 08/07/17 Past Surgical History Appendectomy: Yes Ear Surgery: Yes Eye Surgery: Yes Oral Surgery: Yes (tonsillectomy) Tonsillectomy: Yes Other Surgery: Yes Social History Alcohol Use: No Tobacco Use: No Substance Use: No Allergies-Medications (Allergen,Severity, Reaction): Coded Allergies: codeine (Verified Allergy, Mild, 07/06/17) penicillin G (Verified Allergy, Mild, 07/06/17) Reported Meds & Prescriptions Reported Meds & Active Scripts Active Phenergan (Promethazine HCl) 25 Mg Tablet 25 Mg PO Q6H PRN Reported Amitiza (Lubiprostone) 8 Mcg Cap 24 Mcg PO DAILY Protonix (Pantoprazole Sodium) 40 Mg Tab 40 Mg PO DAILY Celexa (Citalopram Hydrobromide) 20 Mg Tab 20 Mg PO DAILY Trazodone (Trazodone HCl) 100 Mg Tablet 100 Mg PO HS Loestrin Fe 1-20 Tablet (Norethindrone-E.estradiol-Iron) 1 Each Tablet 1 Tab PO HS Data Data Last Documented VS Vital Signs Date Time Temp Pulse Resp B/P (MAP) Pulse Ox O2 Delivery O2 Flow Rate FiO2 08/30/17 22:00 68 18 144/80 (101) 99 Room Air 08/30/17 19:40 98.7 Orders Orders Electrocardiogram (08/30/17 20:05) Ed Urine Pregnancytest Poc (08/30/17 20:05) Complete Blood Count With Diff (08/30/17 20:05) Comprehensive Metabolic Panel (08/30/17 20:05) Magnesium (Mg) (08/30/17 20:05) Troponin I (08/30/17 20:05) Act Partial Throm Time (Ptt) (08/30/17 20:05) Prothrombin Time / Inr (Pt) (08/30/17 20:05) Urinalysis - C+S If Indicated (08/30/17 20:05) Chest, Single Ap (08/30/17 20:05) Ct Brain W/O Iv Contrast(Rout) (08/30/17 20:05) Blood Glucose (08/30/17 20:05) Ecg Monitoring (08/30/17 20:05) Iv Access Insert/Monitor (08/30/17 20:05) Oximetry (08/30/17 20:05) Sodium Chloride 0.9% Flush (Ns Flush) (08/30/17 20:15) Sodium Chlor 0.9% 1000 Ml Inj (Ns 1000 M (08/30/17 20:05) Orthostatic Vital Signs (08/30/17 20:05) Ketorolac Inj (Toradol Inj) (08/30/17 22:00) Ondansetron Odt (Zofran Odt) (08/30/17 22:00) Ed Discharge Order (08/30/17 22:26) Labs Laboratory Tests Test 08/30/17 20:21 08/30/17 20:43 Urine Color YELLOW Urine Turbidity CLEAR Urine pH 7.0 Urine Specific [place] 1.010 Urine Protein NEG mg/dL Urine Glucose (UA) NEG mg/dL Urine Ketones NEG mg/dL Urine Occult Blood NEG Urine Nitrite NEG Urine Bilirubin NEG Urine Urobilinogen 1.0 MG/DL Urine Leukocyte Esterase MOD Urine RBC 0-3 /hpf Urine WBC 0-2 /hpf Urine Squamous Epithelial Cells 6-8 /hpf Urine Bacteria OCC /hpf Microscopic Urinalysis Comment CULT NOT INDICATED White Blood Count 8.1 TH/MM3 Red Blood Count 4.09 MIL/MM3 Hemoglobin 12.4 GM/DL Hematocrit 35.2 % Mean Corpuscular Volume 86.1 FL Mean Corpuscular Hemoglobin 30.4 PG Mean Corpuscular Hemoglobin Concent 35.3 % Red Cell Distribution Width 12.4 % Platelet Count 278 TH/MM3 Mean Platelet Volume 7.5 FL Neutrophils (%) (Auto) 63.0 % Lymphocytes (%) (Auto) 27.6 % Monocytes (%) (Auto) 6.9 % Eosinophils (%) (Auto) 1.6 % Basophils (%) (Auto) 0.9 % Neutrophils # (Auto) 5.1 TH/MM3 Lymphocytes # (Auto) 2.2 TH/MM3 Monocytes # (Auto) 0.6 TH/MM3 Eosinophils # (Auto) 0.1 TH/MM3 Basophils # (Auto) 0.1 TH/MM3 CBC Comment DIFF FINAL Differential Comment Prothrombin Time 9.7 SEC Prothromb Time International Ratio 1.0 RATIO Activated Partial Thromboplast Time 24.3 SEC Blood Urea Nitrogen 7 MG/DL Creatinine 0.64 MG/DL Random Glucose 96 MG/DL Total Protein 7.3 GM/DL Albumin 3.4 GM/DL Calcium Level 8.7 MG/DL Magnesium Level 2.1 MG/DL Alkaline Phosphatase 53 U/L Aspartate Amino Transf (AST/SGOT) 10 U/L Alanine Aminotransferase (ALT/SGPT) 24 U/L Total Bilirubin 0.4 MG/DL Sodium Level 141 MEQ/L Potassium Level 3.5 MEQ/L Chloride Level 109 MEQ/L Carbon Dioxide Level 25.6 MEQ/L Anion Gap 6 MEQ/L Estimat Glomerular Filtration Rate 113 ML/MIN Troponin I LESS THAN 0.02 NG/ML MDM Medical Decision Making Medical Screen Exam Complete: Yes Emergency Medical Condition: Yes Medical Record Reviewed: Yes Interpretation(s) [id number] hCG: Negative Troponin I less than 0.02, not elevated Last Impressions Head CT 08/30/172004 Signed Impressions: Service Date/Time: Wednesday, August 30, 2017 20:52 - CONCLUSION: No acute disease. Radames Watson MD Chest X-Ray 08/30/172004 Signed Impressions: Service Date/Time: Wednesday, August 30, 2017 20:33 - CONCLUSION: Normal examination. Radames Watson MD CBC & BMP Diagram 08/30/17 20:43 Total Protein 7.3, Albumin 3.4, Calcium Level 8.7, Magnesium Level 2.1, Alkaline Phosphatase 53, Aspartate Amino Transf (AST/SGOT) 10 L, Alanine Aminotransferase (ALT/SGPT) 24, Total Bilirubin 0.4 Vital Signs Date Time Temp Pulse Resp B/P (MAP) Pulse Ox O2 Delivery O2 Flow Rate FiO2 08/30/17 22:00 68 18 144/80 (101) 99 Room Air 08/30/17 20:40 100 Room Air 08/30/17 20:32 66 18 136/70 (92) 77 18 145/79 (101) 97 18 145/77 (99) 08/30/17 19:55 16 98 Room Air 08/30/17 19:40 98.7 100 18 148/83 (104) 98 [id number] hCG negative EKG normal sinus rhythm rate [address] elevation injury pattern or ectopy noted Differential Diagnosis Syncope, near syncope, dehydration because of vasovagal event, arrhythmia, , sepsis, TIA, CVA, seizure, PE, viral syndrome Narrative Course 26-year-old female presents after a witnessed syncopal episode consistent with vasovagal episode just prior to arrival to the emergency department 10-15 seconds in duration without trauma. Patient had been sleeping and got up out of bed to go the bathroom felt as if she was nauseated and needed to have a bowel movement sat down on the toilet and became diaphoretic and then stood up to get to the sink and called out for help and mother came to the bathroom catching her preventing her from falling or sustaining an injury and witnessed a 10-15 second episode of syncope without seizure activity patient was awakened and knew who she was where she was without altered mentation. Patient has not felt well for the past 3 days with poor oral intake. Patient's been having crampy abdominal pain and discomfort and also having headache. Patient this point complains of mild nausea and some headache but otherwise feels improved. No prior history of fainting or syncope. Patient had no associated or pre- existing chest pain or shortness of breath pleuritic pain no extremity pain or swelling history of clotting disorder reported recent long distance travel protracted bedrest or surgical procedure. Patient is placed on quality assurance monitor final with continuous pulse oximetry orthostatic measurements were performed and supine to standing 30 bpm change and heart rate with dizziness upon standing; patient administered IV fluid bolus; specimens collected and sent for resulting; [id number] hCG negative; imaging study ordered CT brain noncontrast reveals no acute process Lab values found to be in normal range Patient administered fluids and Toradol and Zofran and able to take oral hydration and asymptomatic at this time and stable for outpatient management Diagnosis Primary Impression: Vasovagal syncope Referrals: Primary Care Physician 1 day Patient Instructions: General Instructions Departure Forms: Tests/Procedures, Work Release Special Instructions: no work x 1 day Additional Instructions: Increase fluid hydration Follow-up with your primary care provider call office in a.m. to schedule follow -up appointment Rest Monitor temperature every 4 hours with thermometry take as needed acetaminophen/ Tylenol every 4 hours for fever 100.4F or greater next take Phenergan as prescribed as needed for nausea and/or vomiting Take ibuprofen/Motrin/Advil 800 mg may be taken as often as every 8 hours for [facility] Associates inflammation or for fever 100.4F or greater No work 1 day Return to the emergency department for any concerns or change in condition Med/Other Pt SpecificInfo: Prescription(s) given Scripts Promethazine (Phenergan) 25 Mg Tablet 25 MG PO Q6H Y for NAUSEA OR VOMITING, #7 TAB 0 Refills Prov: Sonya Cohng MD 08/30/17 Disposition: 01 DISCHARGE HOME Condition: Stable Sonya Chong MD August 30, 2017 22:26
--- NOTE | 2017-09-01 11:57 | EKG ---
Date Performed: 08/30/2017 Time Performed: 20:13:26 PTAGE: 26 years EKG: Sinus rhythm NORMAL ECG PREVIOUS TRACING : 11/02/2016 19.12 DOCTOR: Joseph White Interpretating Date/Time 09/01/2017 11:51:28
== END 2017-08-30 22:38 | disposition home or self-care (01) ==
LOC: PHED 19:35
DX: R55 Syncope and collapse (principal); R51 Headache; J45.909 Unspecified asthma, uncomplicated; F41.9 Anxiety disorder, unspecified; I10 Essential (primary) hypertension; F32.9 Major depressive disorder, single episode, unspecified; Z79.899 Other long term (current) drug therapy; Z88.5 Allergy status to narcotic agent; Z88.0 Allergy status to penicillin
CPT/HCPCS: 70450; 71045; 80053; 81001; 83735; 84484; 84703; 85025; 85610; 85730; 93005; 96361; 96374; 99285; J1885; J7030